=== PATIENT | female | born 1990 | race Caucasian/White ===

== ENCOUNTER 2016-09-10 11:19 | Outpatient (CLI) | payer OTHER | END 2016-09-10 11:20 | disposition home or self-care (01) | DX: Z36 Encounter for antenatal screening of mother (principal) ==

== ENCOUNTER 2016-11-16 08:00 | Outpatient (CLI) | payer OTHER | END 2016-11-16 08:01 | disposition home or self-care (01) | DX: Z34.83 Encounter for supervision of other normal pregnancy, third trimester (principal) ==

== ENCOUNTER 2016-12-02 08:37 | Outpatient (CLI) | payer OTHER | END 2016-12-02 09:28 | disposition home or self-care (01) | DX: O32.1XX0 Maternal care for breech presentation, not applicable or unspecified (principal); Z3A.38 38 weeks gestation of pregnancy ==

== ENCOUNTER 2016-12-21 16:44 | Outpatient (CLI) | payer OTHER | END 2016-12-21 18:10 | disposition home or self-care (01) | DX: O13.3 Gestational [pregnancy-induced] hypertension without significant proteinuria, third trimester (principal); Z3A.41 41 weeks gestation of pregnancy; O48.0 Post-term pregnancy ==

== ENCOUNTER 2016-12-23 01:15 | Inpatient (IN) | payer OTHER ==
[2016-12-22] MEDS: LACTATED RINGERS 1,000 ML IV SCH (19:08)
[~2016-12-23 01:15] MED LIST: DINOPROSTONE 10 MG SUPP VG ONE; SODIUM CHLORIDE FLUSH 0.9% 10 ML SYRINGE IVP PRN; SODIUM CHLORIDE FLUSH 0.9% 10 ML SYRINGE IVP SCH; ZOLPIDEM 5 MG TABLET PO PRN
[2016-12-23] MEDS: LACTATED RINGERS 1,000 ML IV SCH ×2 (02:01→04:09)
[2016-12-23] MEDS ORDERED: fent/BUPIV 2 MCG/0.125% 250 ML EP ONE (02:52)
[2016-12-23] MEDS ORDERED: NALBUPHINE 20 MG/ML AMP IVP PRN ×2 (03:08→04:25)
[2016-12-23] MEDS ORDERED: fent/BUPIV 2 MCG/0.125% 250 ML EP PRN ×2 (03:08→04:25)
[2016-12-23] MEDS ORDERED: diphenhydrAMINE INJ 50 MG/ML VIAL IVP PRN ×2 (03:08→04:25)
[2016-12-23] MEDS ORDERED: ONDANSETRON 4 MG/2 ML VIAL IVP PRN ×2 (03:08→04:25)
[2016-12-23] MEDS ORDERED: ROPIVACAINE 0.2% PF 20 ML AMPULE SUBQ ONE (03:12)
[2016-12-23] MEDS ORDERED: METOCLOPRAMIDE 10 MG/2 ML VIAL IVP PRN (04:25)
[2016-12-23] MEDS ORDERED: LACTATED RINGERS 500 ML IV SCH (04:25)
[2016-12-23] MEDS ORDERED: ePHEDrine 50 MG/ML AMP IVP PRN (04:25)
[2016-12-23] MEDS ORDERED: NALOXONE 0.4 MG/ML VIAL IVP PRN (04:25)
[2016-12-23] MEDS ORDERED: OXYTOCIN/LACTATED RINGERS 250 ML IV ONE ×2 (08:09→10:03)
[2016-12-23] MEDS ORDERED: LIDOCAINE 1% 50 ML MDV ONE (09:13)
[2016-12-23] MEDS: OXYTOCIN/LACTATED RINGERS 250 ML IV SCH ×2 (10:00→10:30)
[2016-12-23] MEDS ORDERED: MINERAL OIL LIGHT 10 ML MC ONE (12:48)
[2016-12-23] MEDS: OXYTOCIN/LACTATED RINGERS 250 ML IV ONE ×2 (13:05→18:27)
[2016-12-23] MEDS ORDERED: diphenhydrAMINE 25 MG CAPSULE PO PRN (13:16)
[2016-12-23] MEDS ORDERED: HYDROcod/ACETAM 5/325 MG TABLET PO PRN (13:16)
[2016-12-23] MEDS: ACETAMINOPHEN 325 MG TABLET PO PRN (13:54)
[2016-12-23] MEDS: IBUPROFEN 600 MG TABLET PO SCH ×2 (13:55→20:19)
[2016-12-23] MEDS ORDERED: LACTATED RINGERS 1,000 ML IV SCH (14:00)
[2016-12-23] MEDS: DOCUSATE SODIUM 100 MG CAPSULE PO SCH (21:02)
[2016-12-24] MEDS: IBUPROFEN 600 MG TABLET PO SCH ×3 (04:50→19:41)
[2016-12-24] MEDS: DOCUSATE SODIUM 100 MG CAPSULE PO SCH ×2 (09:13→19:40)
[2016-12-25] MEDS: IBUPROFEN 600 MG TABLET PO SCH ×2 (04:38→12:20)
[2016-12-25] MEDS ORDERED: MEASLES,MUMPS & RUBELLA VACC 0.5 ML VIAL SUBQ ONE (11:21)
[2016-12-25] MEDS: ACETAMINOPHEN 325 MG TABLET PO PRN (12:19)
[2016-12-25] MEDS: DOCUSATE SODIUM 100 MG CAPSULE PO SCH (12:20)
== END 2016-12-25 13:30 | disposition home or self-care (01) | DRG 775 ==
PROC: 10E0XZZ Delivery of Products of Conception, External Approach (ICD-10-PCS; principal; 2016-12-23)
DX: O13.4 Gestational [pregnancy-induced] hypertension without significant proteinuria, complicating childbirth (principal); O48.0 Post-term pregnancy; Z3A.41 41 weeks gestation of pregnancy; Z37.0 Single live birth

== ENCOUNTER 2017-01-09 19:20 | Emergency (ER) | payer OTHER ==
[2017-01-09] MEDS ORDERED: cefTRIAXone 1 GM VIAL IM STA (20:26)
[2017-01-09] MEDS ORDERED: LIDOCAINE 1% 2 ML VIAL ONE (20:51)
[2017-01-09] MEDS ORDERED: cefTRIAXone 1 GM VIAL ONE (20:51)
== END 2017-01-09 21:01 | disposition home or self-care (01) ==
DX: O86.21 Infection of kidney following delivery (principal); N12 Tubulo-interstitial nephritis, not specified as acute or chronic

== ENCOUNTER 2017-01-10 12:08 | Emergency (ER) | payer OTHER ==
[2017-01-10] MEDS ORDERED: ONDANSETRON 4 MG/2 ML VIAL IVP STA (12:52)
[2017-01-10] MEDS ORDERED: cefTRIAXone 1 GM in SODIUM CHLORIDE 0.9% MINIBAG 100 ML IV STA (12:52)
[2017-01-10] MEDS ORDERED: SODIUM CHLORIDE 0.9% 1,000 ML IV ONE (12:52)
--- NOTE | 2017-01-10 12:54 | ED Physician Documentation ---
PD HPI NVD - Stated complaint Stated Complaint: VOMITING - Chief complaint Chief Complaint: Abd Pain - History obtained from History obtained from: Patient - Additonal information Additional information: No 18 days post from . Seen here last night with L flank pain, dx pyelo. Now pain much better but vomited x2 after first dose of keflex this AM. No blood in vomit, no diarrhea, no fevers, but is feeling dizzy/lightheaded. Review of Systems Constitutional: denies: Fever, Chills Cardiac: denies: Chest pain / pressure, Palpitations Respiratory: denies: Dyspnea, Cough GI: denies: Abdominal Pain, Constipation, Diarrhea PD PAST MEDICAL HISTORY - Past Medical History Past Medical History: No - Past Surgical History Past Surgical History: No - Present Medications Home Medications: Ambulatory Orders Medication Instructions Recorded Confirmed Cephalexin [Keflex] 500 mg PO QID #40 capsule 01/09/17 01/10/17 Hydrocodone/Acetaminophen [Vicodin 1 tab PO Q6HR 01/09/17 01/10/17 5-300 mg Tablet] Pnv95/Ferrous Fumarate/FA 1 tab PO DAILY 01/09/17 01/10/17 [ Tablet] Ondansetron HCl [Zofran] 4 mg PO Q6H PRN #10 tablet 01/10/17 Sulfamethoxazole/Trimethoprim 1 each PO BID 7 Days 01/10/17 [Sulfamethoxazole-Tmp Ds Tablet] - Allergies Allergies/Adverse Reactions: Allergies Allergy/AdvReac Type Severity Reaction Status Date / Time No Known Drug Allergies Allergy Verified 01/10/17 12:15 - Social History Does the pt smoke?: No Smoking Status: Never smoker Does the pt drink ETOH?: No Does the pt have substance abuse?: No - Immunizations Immunizations are current?: Yes - POLST Patient has POLST: No PD ED PE NORMAL - Vitals Vital signs reviewed: Yes (normal) - General General: Alert and oriented X 3, No acute distress - Respiratory Respiratory: No respiratory distress - Abdomen Abdomen: Soft, Non tender - Back Back: No CVA TTP, No spinal TTP - Extremities Extremities: No edema, No calf tenderness / cord - Neuro Neuro: Alert and oriented X 3, Normal speech - Psych Psych: Normal mood, Normal affect Results - Vitals Vitals: Vital Signs - 24 hr 01/10/17 12:10 Temperature 36.4 C L Heart Rate 82 Respiratory 14 Rate Blood Pressure 119/79 O2 Saturation 98 Oxygen O2 Source Room air - Labs Labs: Laboratory Tests 01/10/17 01/10/17 13:10 13:10 Sodium 139 Potassium 4.1 Chloride 104 Carbon Dioxide 25 Anion Gap 10.0 BUN 20 Creatinine 1.3 H Estimated GFR (MDRD) 50 L Glucose 109 H Calcium 9.1 Total Bilirubin 0.3 AST 34 ALT 45 Alkaline Phosphatase 84 Total Protein 7.3 Albumin 3.8 Globulin 3.5 Albumin/Globulin Ratio 1.1 Lipase 16 L HCG, Quant 1.44 PD MEDICAL DECISION MAKING - ED course ED course: She presents with vomiting now, after diagnosis of pyelonephritis. I called over to microbiology, no results at this juncture on the culture. Her pain is much better and she is not running a fever and it started right after she took Keflex for the first time so I presume the vomiting is from the Keflex. Lab work shows negative serum hCG now and creatinine of 1.3 from dehydration is likely. She was administered IV fluids, a second dose of Rocephin and Zofran with resolution of her symptoms. Departure - Departure Disposition: 01 Home, Self Care Clinical Impression: Vomiting, Pyelonephritis Condition: Good Record reviewed to determine appropriate education?: Yes Instructions: ED Nausea Vomiting, Pyelonephritis Dc Prescriptions: Sulfamethoxazole/Trimethoprim [Sulfamethoxazole-Tmp Ds Tablet] 1 each PO BID 7 Days Ondansetron HCl [Zofran] 4 mg PO Q6H PRN #10 tablet PRN Reason: Nausea / Vomiting Comments: Your creatinine is mildly elevated in your blood work which is probably from dehydration, discuss this with your physician, he/she may want to repeat it in a few weeks.
[2017-01-10] MEDS ORDERED: ONDANSETRON 4 MG/2 ML VIAL ONE (13:06)
[2017-01-10] MEDS ORDERED: cefTRIAXone 1 GM VIAL ONE (13:06)
[2017-01-10 13:29] LABS: ALBUMIN/GLOBULIN RATIO 1.1 (1.0-2.2); BILIRUBIN,TOTAL 0.3 mg/dL (0.2-1.0); CALCIUM 9.1 mg/dL (8.5-10.3); CREATININE 1.3 mg/dL (0.4-1.0); POTASSIUM 4.1 mmol/L (3.5-5.0); TOTAL PROTEIN 7.3 g/dL (6.7-8.2)
[2017-01-10 13:56] VITALS: BP 120/67
== END 2017-01-10 13:55 | disposition home or self-care (01) ==
LOC: ED 12:08
DX: N12 Tubulo-interstitial nephritis, not specified as acute or chronic (principal); R11.2 Nausea with vomiting, unspecified
CPT/HCPCS: 36415; 80053; 83690; 84702; 96374; 96375; 99283

== ENCOUNTER 2017-11-29 10:55 | Emergency (ER) | payer OTHER ==
[2017-11-29] MEDS ORDERED: ONDANSETRON 4 MG/2 ML VIAL IVP STA (11:36)
[2017-11-29] MEDS ORDERED: SODIUM CHLORIDE 0.9% 1,000 ML IV ONE (11:36)
[2017-11-29 12:03] LABS: BASOPHILS % (AUTO) 0.3 %; EOSINOPHILS # (AUTO) 0.1 10^3/uL (0.0-0.7); LYMPHOCYTES % (AUTO) 14.7 %; MEAN CORPUSCULAR HEMOGLOBIN 28.5 pg (27.0-31.0); MEAN CORPUSCULAR HGB CONC 33.1 g/dL (32.0-36.0); MEAN CORPUSCULAR VOLUME 86.1 fL (81.0-99.0); MEAN PLATELET VOLUME 8.6 fL (7.9-10.8); MONOCYTES # (AUTO) 0.4 10^3/uL (0.0-1.0); NEUTROPHILS # (AUTO) 5.4 10^3/uL (1.5-6.6); PLT - PLATELET COUNT 267 10^3/uL (130-450); RED BLOOD COUNT 5.59 10^6/uL (4.20-5.40); RED CELL DISTRIBUTION WIDTH 14.3 % (12.0-15.0); WHITE BLOOD COUNT 6.9 x10^3/uL (4.8-10.8)
[2017-11-29 12:14] LABS: ALBUMIN 4.5 g/dL (3.2-5.5); ALBUMIN/GLOBULIN RATIO 1.1 (1.0-2.2); BILIRUBIN,TOTAL 0.8 mg/dL (0.2-1.0); CALCIUM 9.3 mg/dL (8.5-10.3); CREATININE 0.8 mg/dL (0.4-1.0); TOTAL PROTEIN 8.7 g/dL (6.7-8.2)
--- NOTE | 2017-11-29 12:45 | ED Physician Documentation ---
History of Present Illness - Stated complaint Stated Complaint: D/V/N - Chief complaint Chief Complaint: Abd Pain - Additonal information Additional information: hx from pt 27 y/o female might be pregnent to ER with one week of NVD no blood crampy abd pain before diarrhea no bad food no foreign travel no sick contacts no recent ab Review of Systems Constitutional: denies: Fever Throat: denies: Sore throat Cardiac: denies: Chest pain / pressure Respiratory: denies: Dyspnea, Cough GI: reports: Abdominal Pain, Nausea, Vomiting, Diarrhea. denies: Bloody / black stool : reports: Now EGA (maybe) Immunocompromised: denies: Immunocompromised PD PAST MEDICAL HISTORY - Past Medical History Past Medical History: Yes - Past Surgical History Past Surgical History: No - Present Medications Home Medications: Ambulatory Orders Medication Instructions Recorded Confirmed Cephalexin [Keflex] 500 mg PO QID #40 capsule 01/09/17 01/10/17 Hydrocodone/Acetaminophen [Vicodin 1 tab PO Q6HR 01/09/17 01/10/17 5-300 mg Tablet] Pnv95/Ferrous Fumarate/FA 1 tab PO DAILY 01/09/17 01/10/17 [ Tablet] Ondansetron HCl [Zofran] 4 mg PO Q6H PRN #10 tablet 01/10/17 Sulfamethoxazole/Trimethoprim 1 each PO BID 7 Days tablet 01/10/17 [Sulfamethoxazole-Tmp Ds Tablet] Pyridoxine HCl [Vitamin B-6] 25 mg PO Q8H PRN #10 tablet 11/29/17 - Allergies Allergies/Adverse Reactions: Allergies Allergy/AdvReac Type Severity Reaction Status Date / Time No Known Drug Allergies Allergy Verified 01/10/17 12:15 - Social History Does the pt smoke?: No Smoking Status: Never smoker Does the pt drink ETOH?: No Does the pt have substance abuse?: No - Immunizations Immunizations are current?: Yes - POLST Patient has POLST: No PD ED PE NORMAL - Vitals Vital signs reviewed: Yes - Neck Neck: Supple, no meningeal sign - Cardiac Cardiac: RRR - Respiratory Respiratory: No respiratory distress, Clear bilaterally - Abdomen Abdomen: Soft, Non tender - Derm Derm: Normal color - Neuro Neuro: Alert and oriented X 3 Results - Vitals Vitals: Vital Signs - 24 hr 11/29/17 11:08 Temperature 36.8 C Heart Rate 112 H Respiratory 18 Rate Blood Pressure 130/86 H O2 Saturation 95 Oxygen O2 Source Room air - Labs Labs: Laboratory Tests 11/29/17 11/29/17 11/29/17 11:50 11:50 11:50 WBC 6.9 RBC 5.59 H Hgb 16.0 Hct 48.1 H MCV 86.1 MCH 28.5 MCHC 33.1 RDW 14.3 Plt Count 267 MPV 8.6 Neut # 5.4 Lymph # 1.0 L [place] # 0.4 Eos # 0.1 Baso # 0.0 Absolute Nucleated RBC 0.01 Nucleated RBC % 0.1 Sodium 134 L Potassium 3.6 Chloride 102 Carbon Dioxide 23 Anion Gap 9.0 BUN 9 Creatinine 0.8 Estimated GFR (MDRD) 87 L Glucose 98 Calcium 9.3 Total Bilirubin 0.8 AST 27 ALT 29 Alkaline Phosphatase 71 Total Protein 8.7 H Albumin 4.5 Globulin 4.2 Albumin/Globulin Ratio 1.1 Lipase 13 L Serum HCG, Qual NEGATIVE PD MEDICAL DECISION MAKING - ED course ED course: feeling better after IVF held on meds pending HCG which came back neg - sx resolved with just IVF anyway no diarrhea in ED to send for culture will dc with PRN B6 Departure - Departure Disposition: 01 Home, Self Care Clinical Impression: Dehydration Diarrhea Qualifiers: Diarrhea type: unspecified type Qualified Code(s): R19.7 - Diarrhea, unspecified Vomiting Qualifiers: Vomiting type: unspecified Vomiting Intractability: unspecified Nausea presence : unspecified Qualified Code(s): R11.10 - Vomiting, unspecified Condition: Good Instructions: ED Dehydration, ED Food Poison Or Gastroenteritis Prescriptions: Pyridoxine HCl [Vitamin B-6] 25 mg PO Q8H PRN #10 tablet PRN Reason: vomiting in Comments: The labs are fine. The test is negative today - if you suspect you are consider a repeat test in 2 weeks We were not able to get a stool sample to send for testing - but from your history it sounds like this is a viral infection I have prescribed vitamin B6 which you can take if needed for vomiting since you might be Rest and drink plenty of fluids Return if worse Forms: Activity restrictions
[2017-11-29 13:17] LABS: HCG,QUALITATIVE BLOOD NEGATIVE
[2017-11-29 13:34] VITALS: BP 139/86
== END 2017-11-29 13:43 | disposition home or self-care (01) ==
LOC: ED 10:55
DX: E86.0 Dehydration (principal); R11.0 Nausea; R19.7 Diarrhea, unspecified
CPT/HCPCS: 36415; 80053; 83690; 84703; 85025; 96360; 99283; 99284

== ENCOUNTER 2018-02-21 07:44 | Outpatient (CLI) | payer OTHER ==
[2018-02-21 08:03] LABS: BILIRUBIN,URINE NEGATIVE (NEGATIVE); GLUCOSE, URINE (UA) NEGATIVE (NEGATIVE); KETONES,URINE (UA) NEGATIVE (NEGATIVE); LEUKOCYTE ESTERASE, URINE TRACE (NEGATIVE); NITRITE,URINE NEGATIVE (NEGATIVE); OCCULT BLOOD,URINE NEGATIVE (NEGATIVE); PROTEIN,URINE NEGATIVE (NEGATIVE); UROBILINOGEN,URINE 0.2 (NORMAL) E.U./dL (NORMAL)
[2018-02-21 08:09] LABS: BASOPHILS # (AUTO) 0.1 10^3/uL (0.0-0.1); BASOPHILS % (AUTO) 0.8 %; EOSINOPHILS # (AUTO) 0.2 10^3/uL (0.0-0.7); EOSINOPHILS % (AUTO) 1.8 %; HGB - HEMOGLOBIN 14.2 g/dL (12.0-16.0); LYMPHOCYTES # (AUTO) 2.4 10^3/uL (1.5-3.5); LYMPHOCYTES % (AUTO) 25.3 %; MEAN CORPUSCULAR HEMOGLOBIN 29.1 pg (27.0-31.0); MEAN CORPUSCULAR HGB CONC 32.8 g/dL (32.0-36.0); MEAN CORPUSCULAR VOLUME 88.8 fL (81.0-99.0); MONOCYTES # (AUTO) 0.6 10^3/uL (0.0-1.0); MONOCYTES % (AUTO) 6.3 %; NEUTROPHILS # (AUTO) 6.3 10^3/uL (1.5-6.6); NEUTROPHILS % (AUTO) 65.8 %; PLT - PLATELET COUNT 274 10^3/uL (130-450); RED BLOOD COUNT 4.86 10^6/uL (4.20-5.40); RED CELL DISTRIBUTION WIDTH 13.9 % (12.0-15.0); WHITE BLOOD COUNT 9.5 x10^3/uL (4.8-10.8)
[2018-02-21 08:15] LABS: CREATININE,URINE 226.9 mg/dL; PROTEIN/CREATININE RATIO,URINE 0.1 (<=0.2)
[2018-02-21 08:16] LABS: BACTERIA,URINE Moderate /HPF (None Seen); CLARITY,URINE SL. CLOUDY (CLEAR); RBC,URINE 0-5 /HPF (0-5); SQUAMOUS EPITHELIAL CELL,UR MANY Squamous (<= Few)
[2018-02-21 08:23] LABS: ALBUMIN 3.6 g/dL (3.2-5.5); ALBUMIN/GLOBULIN RATIO 0.9 (1.0-2.2); BILIRUBIN,TOTAL 0.5 mg/dL (0.2-1.0); CALCIUM 8.9 mg/dL (8.5-10.3); CREATININE 0.7 mg/dL (0.4-1.0); TOTAL PROTEIN 7.6 g/dL (6.7-8.2)
[2018-02-22 09:06] LABS: HEPATITIS B SURFACE ANTIGEN NON-REACTIVE (NON-REACTIVE); HEPATITIS C ANTIBODY NON-REACTIVE (NON-REACTIVE)
[2018-02-22 14:28] LABS: HIV AG/AB 4TH GEN NON-REACTIVE (NON-REACTIVE)
== END 2018-02-21 07:45 | disposition home or self-care (01) ==
LOC: LAB 07:44
PROVIDERS: ATTEND Obstetrics & Gynecology
DX: Z3A.08 8 weeks gestation of pregnancy (principal)
CPT/HCPCS: 36415; 80053; 80306; 81001; 81599; 82570; 83615; 84156; 85025; 86762; 86803; 86850; 86900; 86901; 87340; 87389; 87491; 87591

== ENCOUNTER 2018-02-21 08:00 | Outpatient (CLI) | payer OTHER ==
[2018-02-21 16:39] LABS: MUDS CUTOFF CONCENTRATIONS CUTOFF CONC BELOW:
[2018-02-21 16:57] LABS: AMPHETAMINE SCREEN,URINE NEGATIVE (NEGATIVE); BENZODIAZEPINES SCREEN, URINE NEGATIVE (NEGATIVE); COCAINE SCREEN URINE NEGATIVE (NEGATIVE); METHADONE SCREEN, URINE NEGATIVE (NEGATIVE); METHAMPHETAMINES SCREEN, URINE NEGATIVE (NEGATIVE); OPIATE SCREEN, URINE NEGATIVE (NEGATIVE); OXYCODONE SCREEN, URINE NEGATIVE (NEGATIVE); PROPOXYPHENE SCREEN, URINE NEGATIVE (NEGATIVE); TRICYCLIC ANTIDEPRESSANT,URINE NEGATIVE (NEGATIVE)
== END 2018-02-21 08:01 | disposition home or self-care (01) ==
LOC: LAB.R 08:00
PROVIDERS: ATTEND Obstetrics & Gynecology
DX: Z3A.08 8 weeks gestation of pregnancy (principal)
CPT/HCPCS: 80306; 87491; 87591

== ENCOUNTER 2018-03-23 15:19 | Outpatient (CLI) | payer OTHER | END 2018-03-23 15:20 | disposition home or self-care (01) | LOC: LAB 15:19 | PROVIDERS: ATTEND Obstetrics & Gynecology | DX: Z36.0 Encounter for antenatal screening for chromosomal anomalies (principal); Z3A.13 13 weeks gestation of pregnancy | CPT/HCPCS: 81599 ==

== ENCOUNTER 2018-04-20 10:47 | Outpatient (CLI) | payer OTHER ==
[2018-04-20 20:42] LABS: HB2 TOTAL 13.8 g/dL; HEMOGLOBIN A1C 0.44 g/dL; HEMOGLOBIN A1C % 5.1 % (4.6-6.2)
== END 2018-04-20 10:48 | disposition home or self-care (01) ==
LOC: LAB 10:47
PROVIDERS: ATTEND Registered Nurse
DX: Z36.9 Encounter for antenatal screening, unspecified (principal)
CPT/HCPCS: 36415; 81599; 82306; 82950; 83036; 84443

== ENCOUNTER 2018-05-09 07:14 | Outpatient (CLI) | payer OTHER ==
--- NOTE | 2018-05-09 15:32 | Ultrasound Report ---
Reason: ENCOUNTER FOR SCREEN FOR MALFORMATION Procedure Date: 05/09/2018 Accession Number: [id number] / [id number] Procedure: US - OB Detailed Eval CPT Code: FULL RESULT: EXAM: COMPLETE OBSTETRICAL ULTRASOUND EXAM DATE: 05/09/2018 09:54 AM. CLINICAL HISTORY: anatomic survey. COMPARISON: None. TECHNIQUE: Real-time sonographic evaluation of the fetus performed by the class c driver. Multiple freight representative static images were saved for review. DATING: Established EGA 20 weeks 1 day with JUNIOR 09/25/2018 based on LMP. EGA 19 weeks 1 day with JUNIOR 10/02/2018 based on the current ultrasound. GENERAL EVALUATION [place] . Cardiac activity: 146 bpm. movement: Visualized. Presentation: Transverse lie, head maternal right. Placenta: Anterior position. Complete previa present. Umbilical cord: 3 vessel cord. Central placental cord origin. Amniotic fluid: Subjectively normal. MVP 2.9 cm. BIOMETRY Bi-Parietal Diameter (BPD): 4.2 cm, 8 weeks 5 days Head Circumference (HC): 16.2 cm, 19 weeks 0 days Abdominal Circumference (AC): 13.8 cm, 19 weeks 1 day Femur Length (FL): 3.1 cm, 19 weeks 4 days Estimated Weight: 285 gm, 11 percentile for 20 week 1 day gestation. ANATOMY Evaluation of the anatomy was technically limited by positioning and patient body habitus. The intracranial structures, profile, face/nose/lips, spine, 4 chamber heart and outflow tracts, stomach, abdominal wall and cord insertion, diaphragm, kidneys, bladder, and extremities were visualized and demonstrate no abnormality. MATERNAL STRUCTURES Uterus: Unremarkable. Cervix: Long and closed. Transabdominal length 4.9 cm. Right ovary/adnexa: Unremarkable. Left ovary/adnexa: Unremarkable. Free fluid: None. IMPRESSION: 1. [place] live intrauterine with gestational age 20 weeks 1 day based on LMP. 2. Estimated weight is within expected limits for assigned dating. 3. Slightly suboptimal evaluation of the anatomy. No anatomic abnormalities are detected at this time. 4. Anterior placenta with complete previa. Recommend repeat ultrasound at 32 weeks to reassess placental positioning and risk for the vasa previa. RADIA
== END 2018-05-09 07:15 | disposition home or self-care (01) ==
LOC: DI 07:14
PROVIDERS: ATTEND Obstetrics & Gynecology
DX: Z36.3 Encounter for antenatal screening for malformations (principal)
CPT/HCPCS: 76811

== ENCOUNTER 2018-06-14 15:55 | Observation (INO) | payer OTHER ==
[2018-06-14 17:17] LABS: RUPTURE OF MEMBRANES PLUS NEGATIVE (NEGATIVE)
[2018-06-14] MEDS ORDERED: ONDANSETRON ODT 4 MG TABLET TL PRN (17:43)
[2018-06-14] MEDS ORDERED: HYDROcod/ACETAM 10 MG/325 MG TABLET PO PRN (17:45)
[2018-06-14] MEDS ORDERED: BETAMETHASONE 30 MG/5 ML VIAL IM ONE (18:00)
[2018-06-14] MEDS ORDERED: ACETAMINOPHEN 500 MG TABLET PO SCH (18:00)
[2018-06-14 18:18] LABS: BASOPHILS % (AUTO) 0.4 %; EOSINOPHILS # (AUTO) 0.1 10^3/uL (0.0-0.7); HGB - HEMOGLOBIN 12.7 g/dL (12.0-16.0); LYMPHOCYTES % (AUTO) 18.8 %; MEAN CORPUSCULAR HEMOGLOBIN 29.2 pg (27.0-31.0); MEAN CORPUSCULAR HGB CONC 33.2 g/dL (32.0-36.0); MEAN CORPUSCULAR VOLUME 87.8 fL (81.0-99.0); MEAN PLATELET VOLUME 9.2 fL (7.9-10.8); MONOCYTES # (AUTO) 0.6 10^3/uL (0.0-1.0); MONOCYTES % (AUTO) 5.3 %; NEUTROPHILS # (AUTO) 7.9 10^3/uL (1.5-6.6); NEUTROPHILS % (AUTO) 74.5 %; PLT - PLATELET COUNT 268 10^3/uL (130-450); RED BLOOD COUNT 4.35 10^6/uL (4.20-5.40); RED CELL DISTRIBUTION WIDTH 14.1 % (12.0-15.0); WHITE BLOOD COUNT 10.6 x10^3/uL (4.8-10.8)
[2018-06-14] MEDS ORDERED: SODIUM CHLORIDE FLUSH 0.9% 10 ML SYRINGE ONE (18:21)
[2018-06-14] MEDS: CYCLOBENZAPRINE 10 MG TABLET PO PRN (18:28)
[2018-06-14] MEDS: ACETAMINOPHEN 500 MG TABLET PO SCH (18:29)
--- NOTE | 2018-06-14 19:24 | Ultrasound Report ---
Reason: abd. trauma from fall, hx placenta previa Procedure Date: 06/14/2018 Accession Number: [id number] / [id number] Procedure: US - OB F/U or Repeat CPT Code: FULL RESULT: EXAM: FOLLOW-UP OBSTETRICAL ULTRASOUND EXAM DATE: 06/14/2018 05:40 PM. CLINICAL HISTORY: Abdominal trauma from a fall, history of placenta previa. COMPARISON: Follow-up or repeat 09/10/2016 11:56 AM. OB detailed evaluation 05/09/2018 7:40 AM. TECHNIQUE: Real-time sonographic evaluation of the fetus performed by the automatic engraver. Additional transvaginal imaging to more accurately evaluate cervical length/placental position/etc. Multiple independent sales representative static images were saved for review. DATING: Established EGA 25 weeks 1 day with JUNIOR 09/26/2018 based on established dates. GENERAL EVALUATION [place] . Cardiac activity: 146 bpm. movement: Visualized. Presentation: Transverse with the head to maternal left. Placenta: Low anterior position. Inferior margin of the placenta covers the cervical os. Amniotic fluid: Normal. JOON 10 cm. MVP 3.2 cm. BIOMETRY Bi-Parietal Diameter (BPD): 5.5 cm, 22 weeks 6 days. Head Circumference (HC): 21.7 cm, 23 weeks 5 days. Abdominal Circumference (AC): 19.7 cm, 24 weeks 3 days. Femur Length (FL): 4.4 cm, 24 weeks 3 days. Estimated Weight: 677 gm, 12th percentile. ANATOMY No new gross abnormality on this limited survey. MATERNAL STRUCTURES Maternal cervix is closed measuring 4.7 cm. IMPRESSION: 1. [place] live intrauterine with gestational age 25 weeks 1 day based on established dates. 2.Estimated weight of 12%. 3. Complete placenta previa. Recommend close attention on subsequent imaging. No abruption is noted. 4. Closed cervix measuring 4.7 cm. 5.Normal interval growth compared to 05/09/2018. RADIA
--- NOTE | 2018-06-14 20:14 | HISTORY & PHYSICAL EXAMINATION ---
DATE OF ADMISSION: 06/14/2018 Physician: Evita Mckinney DO FACOG IDENTIFICATION: A 27-year-old G3, P1-0-1-1, with a 25-week, 1-day intrauterine . EDC is 09/26/2018 that was consistent with an 8-week ultrasound. HISTORY OF PRESENT ILLNESS: Sarah is a patient of [facility]. Unfortunately, she had a ground level fall today. She was walking down the stairs and went down 3 stairs. Her toddler son jumped on her abdomen afterwards. Sarah states that the baby is moving well. Denies any vaginal bleeding or contractions. She is feeling sore and noticed warmth in her underwear. Sarah thinks that this is probably loss of urine. Otherwise, Sarah denies any nausea, vomiting, fevers, or chills. Sarah's has been unremarkable. Placenta previa was noted on her 05/09/2018 anatomical survey with an anterior placenta with complete previa. Transabdominal cervical length at that time was 4.9 cm. Sarah was then referred to the maternal medicine specialist at [facility]. They confirmed an anterior low lying placenta that was 2-3 mm from the internal os in essence of functional placenta previa. Recommended repeat ultrasound in 5 weeks for a growth as well as placenta edge was recommended. PAST MEDICAL HISTORY: Morbid obesity. PAST SURGICAL HISTORY: Diagnostic laparoscopy in which a right fallopian tube was found to be blocked. ALLERGIES: NO KNOWN DRUG ALLERGIES, BUT SHE HAS VOMITED WITH ANCEF. MEDICATIONS 1. vitamins. 2. Tylenol as needed. SOCIAL HISTORY: She denies any tobacco, alcohol or illicit drug use. Sarah is to Lawrence and they have a toddler baby boy, Jmain Cameron. Lawrence is in the [place]. [id number] in [place], [place] is her pharmacy of choice. PAST OBSTETRICAL HISTORY 1. One spontaneous . 2. One term spontaneous vaginal delivery of baby boy Jamin, weight 8 pounds 8.8 ounces. It was noted that Sarah, for her son Jamin, delivered at 41 weeks 1 day for gestational hypertension. She was given Cervidil and then Pitocin after her epidural. Baseline preeclampsia for this were within normal limits. PAST GYNECOLOGICAL HISTORY: She denies any sexually transmitted diseases and all Pap smears have been described as normal limits. FAMILY HISTORY: Paternal grandmother had breast cancer. REVIEW OF SYSTEMS: Negative unless otherwise stated. PHYSICAL EXAMINATION VITAL SIGNS: Temperature is 98.6, heart rate 94, blood pressure 125/69, respiratory rate 18, O2 saturation 100% on room air. GENERAL: Sarah is an obese Fijian female in no apparent distress. She is alert and oriented x3, appeared managed very pleasant and ease to speak to. HEENT: Within normal limits. Sarah does wear glasses. CARDIOVASCULAR: Heart rate is regular. No murmurs or rubs. LUNGS: Lungs are clear to auscultation bilaterally. ABDOMEN: Gravid, nontender. BACK: Generally tender mainly on the left hip area. There are no signs of ecchymosis on her back, nor on her abdomen. LABORATORY DATA: On 02/21/2018 show that her U-tox is negative. Gonorrhea and chlamydia both negative. HIV nonreactive, RPR nonreactive, hepatitis B surface antigen nonreactive. Hepatitis C nonreactive. White count 9.5, H and H 14.2 and 43.2, platelets 274. Rubella is equivocal. Blood type is O positive. Antibody screen is negative. On 04/20/2018, 1-hour GTT is 117 and TSH is 2.24. Hemoglobin A1c is 5.0. Her most recent Pap smear on 02/03/2017 was negative. IMAGING AND DIAGNOSTIC DATA: A 05/09/2018 anatomical survey is consistent with dates and within normal limits. Placenta is anterior, but also complete previa, 3-vessel umbilical cord. Amniotic fluid with a MVP of 2.9 cm at that time. Cervix via transabdominal length was 4.9 cm. Ultrasound again at [facility] showed an anterior low lying placenta 2-3 mm from the internal os. ASSESSMENT 1. A 27-year-old G3, P1-0-1-1 with a 25 and 1/7 week intrauterine . 2. Status post ground level fall. 3. Known functional anterior placenta previa. 4. Rubella nonimmune. PLAN 1. We will admit to observation. We will do a prolonged observation on Sarah given that she has known placenta previa. 2. ROM plus and FFN has been performed. We will also order a CBC type and screen, and FMB flow cystometry. 3. Limited OB ultrasound for estimated weight, amniotic fluid index, cervical length and evaluation for placental abruption. 4. We will start betamethasone series today and complete the second injection tomorrow for lung maturity in the event that Sarah does have a placenta abruption or goes into labor. 5. We will collect a GBS. TD: 06/14/2018 18:12 MTDSarah
--- NOTE | 2018-06-14 21:33 | PROVIDER PROGRESS NOTE ---
Subjective - Prog Note Date Prog Note Date: 06/14/18 Prog Note Time: 21:29 Objective - Vital Signs/Intake & Output Reviewed Vital Signs: Yes Vital Signs: Vital Signs x48h Temp Pulse Resp BP BP Pulse Ox 06/14/18 19:33 97.9 F 101 H 16 129/57 L 98 06/14/18 16:11 98.6 F 94 18 125/69 100 - Lab Results Fish Bones: 06/14/18 18:04 Other Labs: Lab Results x24hrs 06/14/18 06/14/18 06/14/18 Range/Units 18:04 18:04 16:44 WBC 10.6 (4.8-10.8) x10^3/uL RBC 4.35 (4.20-5.40) 10^6/uL Hgb 12.7 (12.0-16.0) g/dL Hct 38.2 (37.0-47.0) % MCV 87.8 (81.0-99.0) fL MCH 29.2 (27.0-31.0) pg MCHC 33.2 (32.0-36.0) g/dL RDW 14.1 (12.0-15.0) % Plt Count 268 (130-450) 10^3/uL MPV 9.2 (7.9-10.8) fL Neut # (Auto) 7.9 H (1.5-6.6) 10^3/uL Lymph # (Auto) 2.0 (1.5-3.5) 10^3/uL [place] # (Auto) 0.6 (0.0-1.0) 10^3/uL Eos # (Auto) 0.1 (0.0-0.7) 10^3/uL Baso # (Auto) 0.0 (0.0-0.1) 10^3/uL Absolute Nucleated RBC 0.01 x10^3/uL Nucleated RBC % 0.1 /100WBC Membranes Rupture NEGATIVE (NEGATIVE) Fibronectin (NEGATIVE) Blood Type O POSITIVE Antibody Screen NEGATIVE 06/14/18 Range/Units 16:44 WBC (4.8-10.8) x10^3/uL RBC (4.20-5.40) 10^6/uL Hgb (12.0-16.0) g/dL Hct (37.0-47.0) % MCV (81.0-99.0) fL MCH (27.0-31.0) pg MCHC (32.0-36.0) g/dL RDW (12.0-15.0) % Plt Count (130-450) 10^3/uL MPV (7.9-10.8) fL Neut # (Auto) (1.5-6.6) 10^3/uL Lymph # (Auto) (1.5-3.5) 10^3/uL [place] # (Auto) (0.0-1.0) 10^3/uL Eos # (Auto) (0.0-0.7) 10^3/uL Baso # (Auto) (0.0-0.1) 10^3/uL Absolute Nucleated RBC x10^3/uL Nucleated RBC % /100WBC Membranes Rupture (NEGATIVE) Fibronectin NEGATIVE (NEGATIVE) Blood Type Antibody Screen Assessment/Plan - Problem List (1) Placenta previa antepartum in second trimester Impression: 27 yo with a 25w1d IUP. Anterior placenta previa. No signs of abruption or labor. Stable H/H 12.7/38.2. ROM Plus negative as well as FFN. O positive and antibody negative. OB U/S: Transverse with head to maternal left. JOON 10 cm with MVP 3.2 cm. EFW 677 gm, 12%centile. Cervix 4.7 cm. No abruption noted. Will continue monitoring for S/s placenta abruption with a known placenta previa. Betamethasone 12 mg IM x 1 today and repeat in 24 hours in the event of PTD. (2) Fall down stairs Impression: S/p fall of 3 steps. Routine tylenol with PRN vicodin. Comfort measures.
[2018-06-15] MEDS: ACETAMINOPHEN 500 MG TABLET PO SCH ×2 (04:11→06:47)
[2018-06-15] MEDS: CYCLOBENZAPRINE 10 MG TABLET PO PRN ×2 (06:47→14:24)
[2018-06-15] MEDS ORDERED: ACETAMINOPHEN 160 MG/5 ML SUSP UDC PO ONE (07:00)
[2018-06-15] MEDS ORDERED: PRENATAL VITAMIN TABLET PO SCH (08:00)
--- NOTE | 2018-06-15 08:51 | PROVIDER PROGRESS NOTE ---
Subjective - Prog Note Date Prog Note Date: 06/15/18 Prog Note Time: 08:49 - Subjective Pt reports feeling: Improved Subjective: Sarah sitting in bed watching TV. Was just speaking to Lawrence, her . Sarah said she had spotting last night but none today. Normal cramping a little worse but no esther contractions. Baby moving well. Muscle relaxant helping. Did take 1 vicodin last night to help her sleep. Would like to do 1 hr GTT since she's here. Understands that she will need a CD at [facility] if placenta previa does not resolve. If however, placenta >/=2 cm from the os, she may deliver here. Objective - Vital Signs/Intake & Output Vital Signs: Vital Signs x48h Temp Pulse Resp BP Pulse Ox 06/15/18 04:04 98.1 F 93 16 114/62 99 - Objective General Appearance: positive: No acute distress Abdomen: positive: Non-tender (Gravid) Back: positive: Nml inspection (No ecchymosis) Skin: positive: Color nml Neurologic/Psychiatric: positive: Oriented x3, Mood/affect nml - Lab Results Fish Bones: 06/14/18 18:04 Other Labs: Lab Results x24hrs 06/14/18 06/14/18 06/14/18 Range/Units 18:04 18:04 16:44 WBC 10.6 (4.8-10.8) x10^3/uL RBC 4.35 (4.20-5.40) 10^6/uL Hgb 12.7 (12.0-16.0) g/dL Hct 38.2 (37.0-47.0) % MCV 87.8 (81.0-99.0) fL MCH 29.2 (27.0-31.0) pg MCHC 33.2 (32.0-36.0) g/dL RDW 14.1 (12.0-15.0) % Plt Count 268 (130-450) 10^3/uL MPV 9.2 (7.9-10.8) fL Neut # (Auto) 7.9 H (1.5-6.6) 10^3/uL Lymph # (Auto) 2.0 (1.5-3.5) 10^3/uL [place] # (Auto) 0.6 (0.0-1.0) 10^3/uL Eos # (Auto) 0.1 (0.0-0.7) 10^3/uL Baso # (Auto) 0.0 (0.0-0.1) 10^3/uL Absolute Nucleated RBC 0.01 x10^3/uL Nucleated RBC % 0.1 /100WBC Membranes Rupture NEGATIVE (NEGATIVE) Fibronectin (NEGATIVE) Blood Type O POSITIVE Antibody Screen NEGATIVE 06/14/18 Range/Units 16:44 WBC (4.8-10.8) x10^3/uL RBC (4.20-5.40) 10^6/uL Hgb (12.0-16.0) g/dL Hct (37.0-47.0) % MCV (81.0-99.0) fL MCH (27.0-31.0) pg MCHC (32.0-36.0) g/dL RDW (12.0-15.0) % Plt Count (130-450) 10^3/uL MPV (7.9-10.8) fL Neut # (Auto) (1.5-6.6) 10^3/uL Lymph # (Auto) (1.5-3.5) 10^3/uL [place] # (Auto) (0.0-1.0) 10^3/uL Eos # (Auto) (0.0-0.7) 10^3/uL Baso # (Auto) (0.0-0.1) 10^3/uL Absolute Nucleated RBC x10^3/uL Nucleated RBC % /100WBC Membranes Rupture (NEGATIVE) Fibronectin NEGATIVE (NEGATIVE) Blood Type Antibody Screen Assessment/Plan - Problem List (1) Placenta previa antepartum in second trimester Impression: 27 yo with a 25w2d IUP Stable placenta previa without S/s abruption S/p first dose of betamethasone Repeat 2nd dose today 24 hours after first injection and then plan to discharge to home Await results of FMB Flow cystometry (2) Fall down stairs Impression: Improving from yesterday Plan to continue routine tylenol and PRN vicodin and cyclobenzaprine Will write for vicodin and cyclobenzaprine for home
[2018-06-15 09:48] VITALS: BP 114/56
--- NOTE | 2018-06-15 12:18 | PROVIDER PROGRESS NOTE ---
Subjective - Prog Note Date Prog Note Date: 06/15/18 Prog Note Time: 12:16 - Subjective Pt reports feeling: No change Subjective: Sarah doing well. No complaints. Baby moving well and no vaginal bleeding. Objective - Vital Signs/Intake & Output Vital Signs: Vital Signs x48h Temp Pulse Resp BP Pulse Ox 06/15/18 09:47 97.3 F L 97 18 114/56 L 100 - Lab Results Fish Bones: 06/14/18 18:04 Other Labs: Lab Results x24hrs 06/15/18 06/14/18 06/14/18 Range/Units 10:30 18:04 18:04 WBC 10.6 (4.8-10.8) x10^3/uL RBC 4.35 (4.20-5.40) 10^6/uL Hgb 12.7 (12.0-16.0) g/dL Hct 38.2 (37.0-47.0) % MCV 87.8 (81.0-99.0) fL MCH 29.2 (27.0-31.0) pg MCHC 33.2 (32.0-36.0) g/dL RDW 14.1 (12.0-15.0) % Plt Count 268 (130-450) 10^3/uL MPV 9.2 (7.9-10.8) fL Neut # (Auto) 7.9 H (1.5-6.6) 10^3/uL Lymph # (Auto) 2.0 (1.5-3.5) 10^3/uL [place] # (Auto) 0.6 (0.0-1.0) 10^3/uL Eos # (Auto) 0.1 (0.0-0.7) 10^3/uL Baso # (Auto) 0.0 (0.0-0.1) 10^3/uL Absolute Nucleated RBC 0.01 x10^3/uL Nucleated RBC % 0.1 /100WBC Glucose 1 Hr 50 gm 168 Membranes Rupture (NEGATIVE) Fibronectin (NEGATIVE) Blood Type O POSITIVE Antibody Screen NEGATIVE 06/14/18 06/14/18 Range/Units 16:44 16:44 WBC (4.8-10.8) x10^3/uL RBC (4.20-5.40) 10^6/uL Hgb (12.0-16.0) g/dL Hct (37.0-47.0) % MCV (81.0-99.0) fL MCH (27.0-31.0) pg MCHC (32.0-36.0) g/dL RDW (12.0-15.0) % Plt Count (130-450) 10^3/uL MPV (7.9-10.8) fL Neut # (Auto) (1.5-6.6) 10^3/uL Lymph # (Auto) (1.5-3.5) 10^3/uL [place] # (Auto) (0.0-1.0) 10^3/uL Eos # (Auto) (0.0-0.7) 10^3/uL Baso # (Auto) (0.0-0.1) 10^3/uL Absolute Nucleated RBC x10^3/uL Nucleated RBC % /100WBC Glucose 1 Hr 50 gm Membranes Rupture NEGATIVE (NEGATIVE) Fibronectin NEGATIVE (NEGATIVE) Blood Type Antibody Screen Assessment/Plan - Problem List (1) Placenta previa antepartum in second trimester Impression: 27 yo with a 25w2d IUP Stable placenta previa S/p 1st dose of Beta-methasone yesterday, 2nd dose due today at 18:00 Plan to discharge to home after 2nd dose given Follow up with me next week. (2) Fall down stairs Impression: S/p fall
--- NOTE | 2018-06-15 12:21 | Discharge Plan ---
Discharge Plan Disposition: 01 Home, Self Care Condition: Good Diet: Regular Activity Restrictions: Pelvic rest, no lifting >10 lbs Shower Restrictions: No Driving Restrictions: Yes (No driving) Weight Bearing: Full Weight Additional Instructions or Follow Up instructions: Rx for vicodin and cyclobenzaprine for home No Smoking: If you smoke, Please STOP! Call for help.
[2018-06-15] MEDS ORDERED: ACETAMINOPHEN 325 MG TABLET PO SCH (14:00)
[2018-06-15] MEDS ORDERED: BETAMETHASONE 30 MG/5 ML VIAL IM ONE (18:00)
== END 2018-06-15 17:51 | disposition home or self-care (01) ==
LOC: WFO 15:55 → FBP 15:56 → WFO 17:22 → FBP 17:23
PROVIDERS: ADMIT Obstetrics & Gynecology; ATTEND Obstetrics & Gynecology
DX: O99.89 Other specified diseases and conditions complicating pregnancy, childbirth and the puerperium (principal); M25.552 Pain in left hip; O44.02 Complete placenta previa NOS or without hemorrhage, second trimester; O99.212 Obesity complicating pregnancy, second trimester; E66.01 Morbid (severe) obesity due to excess calories; W10.8XXA Fall (on) (from) other stairs and steps, initial encounter; Y92.008 Other place in unspecified non-institutional (private) residence as the place of occurrence of the external cause; Z3A.25 25 weeks gestation of pregnancy
CPT/HCPCS: 76816; 81599; 82731; 82950; 84112; 85025; 86850; 86900; 86901; 96372; 99212; A9270; G0378

== ENCOUNTER 2018-06-23 12:08 | Outpatient (CLI) | payer OTHER ==
[2018-06-23 12:47] LABS: HB2 TOTAL 13.2 g/dL; HEMOGLOBIN A1C 0.41 g/dL
== END 2018-06-23 12:09 | disposition home or self-care (01) ==
LOC: LAB 12:08
PROVIDERS: ATTEND Obstetrics & Gynecology
DX: O99.810 Abnormal glucose complicating pregnancy (principal)
CPT/HCPCS: 36415; 82951; 82952; 83036

== ENCOUNTER 2018-08-28 16:08 | Outpatient (CLI) | payer OTHER | END 2018-08-28 16:09 | disposition home or self-care (01) | LOC: LAB.R 16:08 | PROVIDERS: ATTEND Obstetrics & Gynecology | DX: Z33.1 Pregnant state, incidental (principal) | CPT/HCPCS: 87081 ==

== ENCOUNTER 2018-09-18 15:05 | Outpatient (CLI) | payer OTHER ==
[2018-09-18 16:48] VITALS: BP 137/64
[2018-09-18 17:27] LABS: BASOPHILS % (AUTO) 0.3 %; EOSINOPHILS # (AUTO) 0.1 10^3/uL (0.0-0.7); EOSINOPHILS % (AUTO) 0.9 %; HGB - HEMOGLOBIN 12.3 g/dL (12.0-16.0); LYMPHOCYTES # (AUTO) 2.3 10^3/uL (1.5-3.5); LYMPHOCYTES % (AUTO) 24.2 %; MEAN CORPUSCULAR HEMOGLOBIN 28.1 pg (27.0-31.0); MEAN CORPUSCULAR HGB CONC 32.4 g/dL (32.0-36.0); MEAN CORPUSCULAR VOLUME 86.9 fL (81.0-99.0); MEAN PLATELET VOLUME 9.6 fL (7.9-10.8); MONOCYTES # (AUTO) 0.7 10^3/uL (0.0-1.0); MONOCYTES % (AUTO) 7.3 %; NEUTROPHILS # (AUTO) 6.5 10^3/uL (1.5-6.6); NEUTROPHILS % (AUTO) 67.3 %; PLT - PLATELET COUNT 249 10^3/uL (130-450); RED BLOOD COUNT 4.38 10^6/uL (4.20-5.40); RED CELL DISTRIBUTION WIDTH 14.7 % (12.0-15.0); WHITE BLOOD COUNT 9.6 x10^3/uL (4.8-10.8)
[2018-09-18] MEDS ORDERED: ZOLPIDEM 5 MG TABLET PO PRN (18:24)
--- NOTE | 2018-09-18 18:27 | Discharge Plan ---
Discharge Plan Disposition: 01 Home, Self Care Condition: Good Diet: Regular Activity Restrictions: Wt Bearing as Tolerated Shower Restrictions: No Driving Restrictions: No Weight Bearing: Full Weight No Smoking: If you smoke, Please STOP! Call for help.
--- NOTE | 2018-09-18 18:29 | PROVIDER PROGRESS NOTE ---
Labor Progress Note - Uterine Monitoring Uterine Monitoring Mode: positive: External toco Contraction Frequency (min/apart): Q 3-5 Contraction Intensity: positive: Mild (to Min) Uterine Resting Tone: positive: Soft - Monitoring Monitor Mode: positive: External ultrasound Heart Rate Baseline: 140 Heart Rate Variability: positive: Moderate (6-25 bmp) Accelerations: positive: Present, 15x15 Decelerations: positive: None Strip Review: positive: Category I - Vaginal Exam Dilation (in cm): 2 no change Effacement (%): 50% Station: -1 Cervical Position: Midposition - Labor Progress Note Labor Progress Note/Additional Text: Not in labor. C/S set for Tuesday unless labor starts. Instructions given.
[2018-09-19] MEDS ORDERED: CLINDAMYCIN 600 MG/50 ML 50 ML IV ONE (17:26)
== END 2018-09-18 18:45 | disposition home or self-care (01) ==
LOC: LAB 15:05 → FBP 15:25 → LAB 18:45
PROVIDERS: ATTEND Obstetrics & Gynecology
DX: Z34.83 Encounter for supervision of other normal pregnancy, third trimester (principal)
CPT/HCPCS: 36415; 85025; 86850; 86900; 86901; 99213; A9270

== ENCOUNTER 2018-09-19 10:05 | Inpatient (IN) | payer OTHER ==
--- NOTE | 2018-09-18 21:56 | PREOP HISTORY & PHYSICAL ---
DATE OF SERVICE: 09/18/2018 Physician: Rakesh Parker MD DIAGNOSES 1. Labor. 2. Elective section due to LGA fetus. 3. Elective sterilization. 4. Maternal obesity. HISTORY OF PRESENT ILLNESS: Patient is a 28-year-old , 3, para 1-0-1-1 woman at 38 weeks' 6 days' gestation and reports regular uterine contractions and pelvic pressure beginning on the afternoon of the 09/18/2018. She is currently being triaged for possible labor. Patient has been seen for similar complaints by Dr. Doe on 09/12/2018. CARE: Pending report. Patient had placenta previa reported earlier in the , has had serial following by [facility]. This confirms that placenta previa has resolved. She did experience a fall at 25 weeks, which has not have sequela and a course of betamethasone at that time. One-hour glucose challenge test was 198, and 3-hour testing reported normal. In , patient had severe fatigue, which was worked up without detection of thyroid disease, anemia, etc. PAST MEDICAL HISTORY: Patient denies cardiovascular disease. ALLERGIES: KEFLEX. MEDICATIONS: vitamins and iron. FAMILY HISTORY: Denies inheritable disease history or congenital anomalies. + HTN & DM SOCIAL HISTORY: Denies drug, tobacco, or alcohol use. U-tox taken and negative. REVIEW OF SYSTEMS CONSTITUTIONAL: Negative. HEENT: Negative. CARDIAC: Negative. PULMONARY: Negative. GASTROINTESTINAL: Negative. GENITOURINARY: Negative. SKIN: Negative. NEUROLOGIC: Negative. HEMATOLOGIC: No easy bleeding tendencies. PHYSICAL EXAMINATION GENERAL: Alert, oriented, cooperative, obese. HEENT: Glasses, EOMI. Nonicteric sclerae. Supple neck. No thyromegaly. LUNGS: Clear to auscultation. CARDIAC: Regular. No murmur. No gallop. ABDOMEN: Slightly large liver. No tenderness. No focal tenderness. UTERUS: Reilly's suspect an 8 pound fetus in a vertex presentation. Contractions every about 3-5 minutes palpable. Heart tones office 135-140. EXTERNAL GENITALIA: No lesions. Vagina: No blood or discharge. CERVIX: 1-2 cm, 20/30 percent effaced, -1 station. MUSCULOSKELETAL: Nonedematous. Normal ROM. NEUROLOGIC: Grossly intact. Patellar reflexes 2+ and equal. ADMISSION LABORATORY DATA: Pending. ASSESSMENT: This is a term in a patient who elects to have a primary motivated by possible macrosomia. Additionally, she desires bilateral tubal ligation using salpingectomy. She understands this will yield her sterile, which is her desire. She is aware of the dangers of section and salpingectomy inclusive of bleeding, transfusion, infection, postoperative pain, damage to GI tract, damage to bladder, urinary tract. This was explained to her in detail, and she accepts these risks. PLAN: Patient sent to Labor and Delivery for observation to determine if she is in labor. If she is in labor, section will be done on the 09/19/2018. Otherwise, planning for the 09/20/2018. We will use clindamycin for prophylactic antibiotic. TD: 09/18/2018 17:37 Revised 09/25/2018 anabella Acct correction Orig. signed 09/19/2018@0929 MTDD
[2018-09-19 11:05] LABS: RUPTURE OF MEMBRANES PLUS NEGATIVE (NEGATIVE)
[2018-09-19] MEDS ORDERED: fentaNYL 100 MCG/2 ML VIAL IVP PRN (12:56)
[2018-09-19] MEDS ORDERED: ONDANSETRON 4 MG/2 ML VIAL IVP PRN (12:56)
[2018-09-19] MEDS ORDERED: SODIUM CHLORIDE FLUSH 0.9% 10 ML SYRINGE IVP PRN ×2 (12:56→16:55)
[2018-09-19] MEDS ORDERED: ACETAMINOPHEN 325 MG TABLET PO SCH (13:00)
[2018-09-19] MEDS ORDERED: LACTATED RINGERS 1,000 ML IV SCH (13:00)
[2018-09-19] MEDS ORDERED: diphenhydrAMINE INJ 50 MG/ML VIAL IVP ONE (14:46)
[2018-09-19] MEDS ORDERED: CLINDAMYCIN 900 MG/50 ML 50 ML IV SCH (16:00)
[2018-09-19] MEDS ORDERED: diphenhydrAMINE 25 MG CAPSULE PO PRN (16:55)
[2018-09-19] MEDS ORDERED: oxyCODONE 5 MG TABLET PO PRN (16:55)
[2018-09-19] MEDS ORDERED: MAGNESIUM HYDROXIDE 2,400 MG/30 ML UDC PO PRN (16:55)
[2018-09-19] MEDS ORDERED: ZOLPIDEM 5 MG TABLET PO PRN (16:55)
[2018-09-19] MEDS ORDERED: SODIUM CHLORIDE FLUSH 0.9% 10 ML SYRINGE IVP SCH ×2 (17:00)
--- NOTE | 2018-09-19 17:02 | OPERATIVE REPORT ---
Operative Report - General Admit Date: 09/19/18 Planned Procedure: Primary section; sterilization Pre-Op Diagnosis: Elective (maternal desire) section; sterilization via bilateral sa Procedure Performed: Primary lower segment transverse section; bilateral salpingectomy Post Op Diagnosis: Same as above - Procedure Note Primary Surgeon: Arias MD, FACOG, FICS Secondary Surgeon: Raji Vázquez, DHRUV, AFNP Anesthesia Provider: Daja Simon, certified nurse plate glass grinder Anesthesia Technique: Spinal Pathology: Tubal segments, right marked with suture Drain/Tube Type: Other (Rosado catheter) Complications: NONE - Other Other Information/Narrative: TECHNIQUE I met the patient and her earlier in the day to discuss the mechanics risks and benefits of primary section. She was certain of her decision because of possible LGA fetus and desire for bilateral tubal ligation/salpingectomy. She will accept transfusion if required. Informed consent paperwork was signed. Just prior to surgery should confirmed her desire for sterilization. Patient was placed on the OR table in the sitting position for administration of spinal anesthesia. Spinal was uneventfully placed. Patient was then moved to the supine. Rosado catheter was uneventfully placed with clear urine return. heart tones were confirmed. Patient was prepped and draped in the customary sterile fashion. Timeout briefing was done per protocol. We confirmed good anesthesia coverage through the level T10. Pfannenstiel incision was used to uneventfully open the abdomen. Upon abdominal cavity entry there was no significant adhesive disease. Representative Phlebotomy Services assess the position of the fetus size and placental position. Curvilinear hysterotomy was then executed with scalpel. Upon entry into the amniotic cavity clear fluid spilled forth. Wound was gently widened with finger traction. [facility] Phlebot[facility] Services reached into the uterine cavity and secured head. With fundal pressure from the election assistant the head was uneventfully delivered through the hysterotomy and laparotomy. There is no difficulty in delivery of the shoulders. Cord was doubly clamped and transected. Infant was handed to the waiting pediatric nursing team. Uterus was exteriorized and inspected. The hysterotomy is closed in 2 parts first with a interlock stitch of 0 Vicryl followed by an imbricating stitch of 0 5-0 Vicryl in a cardinal fashion. Pelvis was inspected for bleeding vessels. The abdominal cavity was doubly lavaged with warm normal saline. Yee clamps were used to tent the tube away from the mesosalpinx and mesosalpinx vessels. LigaSure device was used to doubly desiccate and transect each tube along the mesosalpinx uneventfully. During the salpingectomy the fi rst LigaSure device failed and was replaced by a properly functioning second. Approximately 1 cm of tubal stump was used to prevent fistulization. Both tubes were sent to pathology. Uterus was placed back into the abdominal cavity. All operative sites were inspected. The superior branch of the left uterine vein and vessels feeding the left tube were swollen and a small 5 mm area of venous weeping was visualized. A series of 2 interrupted sutures of 0 Vicryl were placed across the vein and one [id number] suture. The series of sutures ligated the uterine vein and bleeding stopped. We waited 5 minutes for continued observation to ensure that the area was hemostatically secure. Abdominal peritoneum was closed with running stitch of 2-0 Vicryl. Rectus muscles were tacked back together with interrupted stitches of 0 Vicryl. Fascial incision was closed with a running stitch of 0 Vicryl. Subcutaneous space was closed with interrupted sutures of 2-0 chromic. Skin was closed with 4-0 Vicryl in a subcuticular fashion. Wound VAC was placed. The final sponge needle and instrument counts were confirmed as correct. FINDINGS 1. The external exam genitalia were examined and no concerning lesions were discovered. The distribution of pubic hair was normal. The urethra was was had a appropriate angle and of normal caliber. 2. The abdomen was obese with truncal obesity. There was a 3 cm pannus.. 3. The uterus had a normal contour without evidence of fibroids. The internal cavity had no septum or myometrial defects. The uterus had evidence of pelvic congestion syndrome with increased vascularity.. 4. The placenta was removed intact with three-vessel cord. There was no cord entanglement. There is no evidence of infection or meconium. Cord blood sample was taken. 5. Ovaries were of normal size and mobile. 6. A living female was born at blank hours weighing blank 3330 grams. Apgars were 7/9. There was no obvious congenital anomalies or trauma. INTRAOP MEDS Ancef 2g IV piggyback. Pitocin IV Methergine 0.2mg IM
[2018-09-19] MEDS ORDERED: KETOROLAC 30 MG/ML VIAL IVP ONE (18:00)
[2018-09-19] MEDS ORDERED: ePHEDrine 50 MG/ML VIAL IVP ONE (18:00)
[2018-09-19] MEDS ORDERED: MORPHINE PF 5 MG/10 ML AMP EP ONE (18:00)
[2018-09-19] MEDS ORDERED: OXYTOCIN 10 UNIT/ML VIAL IV ONE (18:00)
[2018-09-19] MEDS ORDERED: ACETAMINOPHEN 1,000 MG/100 ML 100 ML IV ONE (19:50)
[2018-09-19] MEDS: LACTATED RINGERS 1,000 ML IV SCH (20:34)
[2018-09-19] MEDS ORDERED: DOCUSATE SODIUM 100 MG CAPSULE PO SCH (21:00)
[2018-09-19] MEDS: ACETAMINOPHEN 500 MG TABLET PO SCH (22:03)
[2018-09-19] MEDS: IBUPROFEN 600 MG TABLET PO SCH ×2 (22:04→23:43)
[2018-09-19] MEDS: SIMETHICONE CHEW 80 MG TABLET PO SCH (23:43)
[2018-09-20] MEDS: LACTATED RINGERS 1,000 ML IV SCH ×2 (00:44→02:47)
[2018-09-20] MEDS: ACETAMINOPHEN 500 MG TABLET PO SCH ×3 (04:39→20:56)
[2018-09-20] MEDS: IBUPROFEN 600 MG TABLET PO SCH ×3 (06:23→18:48)
--- NOTE | 2018-09-20 10:02 | PROVIDER PROGRESS NOTE ---
Subjective - General Admit Date: 09/19/18 Procedure Date: 09/19/18 Post Op Days: 1 Procedure Performed: C/S - Review of Systems Wound/Incisions: positive: Healing well, Other (Wound VAC functional) General: positive: No symptoms HEENT: positive: No symptoms Pulmonary: positive: No symptoms Cardiovascular: positive: No symptoms Gastrointestinal: positive: No symptoms, Abdominal pain (Appropriate soreness after section slightly more on left side than right) Genitourinary: positive: No symptoms, Other (Non-foul lochia) Musculoskeletal: positive: No symptoms Skin: positive: No symptoms Psychiatric: positive: No symptoms Objective - Patient Data Vital Signs: Vital Signs x48h Temp Pulse Resp BP Pulse Ox 09/20/18 08:00 99.0 F 79 16 118/54 L 98 09/20/18 05:57 16 09/20/18 05:55 106/52 L 09/20/18 05:44 96/41 L 09/20/18 05:00 16 09/20/18 04:00 16 09/20/18 03:09 89 12 112/55 L 97 09/20/18 02:51 108/44 L 09/20/18 02:47 98.6 F 84 18 103/43 L 98 09/20/18 02:03 16 Weight: Weight 09/18/18 09/19/18 09/20/18 23:59 23:59 23:59 Weight (kg) 101.605 kg Intake & Output: Intake and Output Totals x24h 09/18/18 09/19/18 09/20/18 23:59 23:59 23:59 Intake Total 2359.217 Output Total 125 265 Balance -125 2094.217 - Lab Results Other Lab Results: Lab Results x24hrs 09/19/18 Range/Units 10:30 Membranes Rupture NEGATIVE (NEGATIVE) - Current Medications Current Medications: Current Medications Generic Name Dose Route Start Last Admin Trade Name Freq PRN Reason Stop Dose Admin Acetaminophen 1,000 mg 09/19/18 17:00 09/20/18 04:39 Tylenol PO 1,000 mg Q8H JESSICA Administration Docusate Sodium 250 mg 09/19/18 21:00 09/19/18 22:11 Colace 100mg Capsule PO Not Given BID JESSICA Lactated Ringer's 1,000 mls @ 100 mls/hr 09/19/18 17:00 09/20/18 02:47 Lr IV 999 mls/hr .Q10H JESSICA Administration Ibuprofen 600 mg 09/19/18 17:00 09/20/18 06:23 Motrin PO 600 mg Q6H JESSICA Administration Ondansetron HCl 4 mg 09/19/18 12:56 09/19/18 21:16 Zofran Inj IVP 4 mg Q4H PRN Administration Nausea / Vomiting Simethicone 80 mg 09/19/18 22:00 09/19/18 23:43 Mylicon PO 80 mg TID JESSICA Administration Sodium Chloride 10 ml 09/19/18 17:00 09/19/18 22:11 Normal Saline Flush 0.9% IVP Not Given 0100,0900,1700 [facility] Physical Exam - Physical Exam General: positive: No acute distress HEENT: positive: Moist mucous membranes Neck: positive: Supple w/out meningeal sx Cardiac: positive: Regular Rate, Murmur Present Resipratory: positive: Clear to ausultation breezy Abdomen: positive: Normal Bowel sounds, Other (Appropriate tenderness) Female : positive: Enlarged uterus (17-week size tender) Extremities: positive: Normal ROM, No pedal edema Skin: positive: Warm and dry Neurologic: positive: Alert and Oriented X 3, Normal motor/no weakness, Normal Sensation, Normal Speech Assessment/Plan - Assessment/Plan Assessment: Patient recovering from well. Hemodynamically stable. Nursing going well. No evidence of mood disturbance. Plan: * Increase activity. * Discontinue Rosado. * Supportive care. * Breast-feeding coaching.
[2018-09-20 11:55] LABS: BASOPHILS % (AUTO) 0.2 %; EOSINOPHILS % (AUTO) 0.3 %; HGB - HEMOGLOBIN 9.5 g/dL (12.0-16.0); LYMPHOCYTES # (AUTO) 1.5 10^3/uL (1.5-3.5); LYMPHOCYTES % (AUTO) 13.1 %; MEAN CORPUSCULAR HEMOGLOBIN 28.6 pg (27.0-31.0); MEAN CORPUSCULAR HGB CONC 33.6 g/dL (32.0-36.0); MEAN PLATELET VOLUME 9.1 fL (7.9-10.8); MONOCYTES # (AUTO) 0.9 10^3/uL (0.0-1.0); MONOCYTES % (AUTO) 7.6 %; NEUTROPHILS # (AUTO) 9.3 10^3/uL (1.5-6.6); NEUTROPHILS % (AUTO) 78.8 %; PLT - PLATELET COUNT 213 10^3/uL (130-450); RED BLOOD COUNT 3.34 10^6/uL (4.20-5.40); RED CELL DISTRIBUTION WIDTH 14.9 % (12.0-15.0); WHITE BLOOD COUNT 11.9 x10^3/uL (4.8-10.8)
[2018-09-20] MEDS: SIMETHICONE CHEW 80 MG TABLET PO SCH ×2 (12:42→20:56)
[2018-09-20] MEDS: DOCUSATE SODIUM 250 MG CAPSULE PO SCH ×2 (12:53→20:56)
[2018-09-21] MEDS: IBUPROFEN 600 MG TABLET PO SCH ×4 (01:26→21:19)
[2018-09-21] MEDS: ACETAMINOPHEN 500 MG TABLET PO SCH ×4 (06:33→23:34)
[2018-09-21] MEDS ORDERED: MEASLES,MUMPS & RUBELLA VACC 0.5 ML VIAL SUBQ ONE (07:29)
[2018-09-21] MEDS: SIMETHICONE CHEW 80 MG TABLET PO SCH ×4 (08:49→21:19)
[2018-09-21] MEDS: DOCUSATE SODIUM 250 MG CAPSULE PO SCH ×2 (08:50→21:19)
[2018-09-22] MEDS: IBUPROFEN 600 MG TABLET PO SCH ×3 (03:27→14:10)
[2018-09-22] MEDS: ACETAMINOPHEN 500 MG TABLET PO SCH (08:21)
[2018-09-22] MEDS: SIMETHICONE CHEW 80 MG TABLET PO SCH ×2 (08:22→14:10)
--- NOTE | 2018-09-22 08:52 | Discharge Plan ---
Discharge Plan Disposition: 01 Home, Self Care Condition: Good Diet: Regular Activity Restrictions: Activity as Tolerated Shower Restrictions: No Driving Restrictions: No No Smoking: If you smoke, Please STOP! Call for help.
[2018-09-22] MEDS: DOCUSATE SODIUM 250 MG CAPSULE PO SCH (09:39)
--- NOTE | 2018-09-22 10:04 | DISCHARGE SUMMARY ---
Physician: Rakesh Parker MD DATE OF ADMISSION: 09/19/2018 DATE OF DISCHARGE: 09/22/2018 DIAGNOSES 1. Elective (maternal demand; sterilization via bilateral salpingectomy). 2. Obesity. PROCEDURE: Primary lower segment transverse section, bilateral salpingectomy. HISTORY OF PRESENT ILLNESS: The patient is a 28-year-old , 2 para 1, who has had re gular care at the [facility]. It is suspected that her fetus is possible LGA. The len ent strongly desires a section. She was counseled by Dr. Mckinney and myself. Reference original [facility] and [facility] note. HOSPITAL COURSE: The patient was evaluated earlier in the day for possible labor. There wer e very subtle cervical changes and contractions noted. Subsequently, the patient underwent primary l ower segment transverse section with bilateral salpingectomy under spinal anesthetic, uneven tfully. Total blood loss was 400-450. A living female was born weighing 3300 grams, and scoring Apg ars of 7/9. The patient went to the recovery room in good condition. Postoperatively, the patient did well recovering to normal activity and infant care activity. She re quired some supplementation with . On postoperative day #3, she strongly desired discha rge. She was prepped for her discharge including warning sign and callback instructions. Followup will be in seven days to remove wound VAC and wound check. DISCHARGE MEDICATIONS 1. Motrin 600 mg q 6 hours. 2. [place] 325/5 one tab every 4 hours breakthrough pain. 3. Colace 250 oral b.i.d. 4. vitamins with iron. TD: 09/22/2018 08:57
[2018-09-22 13:44] VITALS: BP 135/71
[2018-09-22] MEDS ORDERED: MEASLES,MUMPS & RUBELLA VACC 0.5 ML VIAL SUBQ ONE (14:45)
== END 2018-09-22 14:20 | disposition home or self-care (01) | DRG 785 ==
LOC: WFO 10:05 → FBP 10:05 → WFO 12:55 → FBP 12:56
PROVIDERS: ADMIT Obstetrics & Gynecology; ATTEND Obstetrics & Gynecology
PROC: 0UT70ZZ Resection of Bilateral Fallopian Tubes, Open Approach (ICD-10-PCS; principal; 2018-09-19)
PROC: 10D00Z1 Extraction of Products of Conception, Low, Open Approach (ICD-10-PCS; 2018-09-19)
DX: O36.63X0 Maternal care for excessive fetal growth, third trimester, not applicable or unspecified (principal); Z3A.38 38 weeks gestation of pregnancy; Z37.0 Single live birth; Z30.2 Encounter for sterilization; O99.214 Obesity complicating childbirth; E66.9 Obesity, unspecified
CPT/HCPCS: 36415; 84112; 85025; 99213

== ENCOUNTER 2018-09-23 10:44 | Emergency (ER) | payer OTHER ==
[2018-09-23 10:50] VITALS: BP 129/75
--- NOTE | 2018-09-23 11:47 | ED Physician Documentation ---
History of Present Illness - Stated complaint Stated Complaint: PUMP NOT WORKING POST SURGERY - Chief complaint Chief Complaint: Wound - History obtained from History obtained from: Patient, Family - History of Present Illness Timing: Last night - Additonal information Additional information: 28-year-old female has a wound VAC in place after a section on Tuesday and last night the device began to give a warning alarm and she called her RN FAMILY PRACTICE who told her to come to the emergency department this morning. Patient presents to the emergency department with a malfunctioning medical detailist and she is otherwise without symptoms. She does have symptoms of hemorrhoid which is not had previously and asked for advice about this. Review of Systems Constitutional: denies: Fever, Chills Respiratory: denies: Cough GI: reports: Abdominal Pain (over inscision improving). 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 Cardiovascular: Other - Present Medications Home Medications: Ambulatory Orders Medication Instructions Recorded Confirmed Cephalexin [Keflex] 500 mg PO QID #40 capsule 01/09/17 01/10/17 Hydrocodone/Acetaminophen [Vicodin 1 tab PO Q6HR 01/09/17 01/10/17 5-300 mg Tablet] Pnv95/Ferrous Fumarate/FA 1 tab PO DAILY 01/09/17 01/10/17 [ Tablet] Ondansetron HCl [Zofran] 4 mg PO Q6H PRN #10 tablet 01/10/17 Sulfamethoxazole/Trimethoprim 1 each PO BID 7 Days tablet 01/10/17 [Sulfamethoxazole-Tmp Ds Tablet] RX: Pyridoxine HCl [Vitamin B-6] 25 mg PO Q8H PRN #10 tablet 11/29/17 - Allergies Allergies/Adverse Reactions: Allergies Allergy/AdvReac Type Severity Reaction Status Date / Time No Known Drug Allergies Allergy Verified 09/23/18 10:49 - Social History Does the pt smoke?: No Smoking Status: Never smoker Does the pt drink ETOH?: No Does the pt have substance abuse?: No - Immunizations Immunizations are current?: Yes - POLST Patient has POLST: No PD ED PE NORMAL - Vitals Vital signs reviewed: Yes (normal ) - General General: Alert and oriented X 3, No acute distress, Well developed/nourished - HEENT HEENT: Atraumatic, PERRL, EOMI - Respiratory Respiratory: No respiratory distress - Abdomen Abdomen: Other (There is a wound vac over an inscision and no evidence of inflammation ) - Derm Derm: Normal color, Warm and dry, No rash - Extremities Extremities: No deformity, No edema - Neuro Neuro: Alert and oriented X 3, ship's master 2-12 intact, No motor deficit, No sensory deficit, Normal speech Eye Opening: Spontaneous Motor: Obeys Commands Verbal: Oriented GCS Score: 15 - Psych Psych: Normal mood, Normal affect Results - Vitals Vitals: Vital Signs - 24 hr 09/23/18 10:47 Temperature 36.0 C L Heart Rate 70 Respiratory 16 Rate Blood Pressure 129/75 O2 Saturation 100 Oxygen O2 Source Room air PD MEDICAL DECISION MAKING - ED course Complexity details: considered differential, d/w patient, d/w family ED course: Wound vacs batteries are replaced and the mechanism is reset and she continues to have some issue with this wound VAC. After repeated attempts the device is working. Departure - Departure Disposition: 01 Home, Self Care Clinical Impression: Encounter for management of wound VAC, Hemorrhoids Condition: Stable Instructions: Closure Wound Vacuum Assisted, ED Hemorrhoids Follow-Up: Rakesh Parker MD [Provider Admit Priv/Credential] - Discharge Date/Time: 09/23/18 12:39
== END 2018-09-23 12:39 | disposition home or self-care (01) ==
LOC: ED 10:44
DX: T85.618A Breakdown (mechanical) of other specified internal prosthetic devices, implants and grafts, initial encounter (principal); Y84.8 Other medical procedures as the cause of abnormal reaction of the patient, or of later complication, without mention of misadventure at the time of the procedure; O87.2 Hemorrhoids in the puerperium
CPT/HCPCS: 99282

== ENCOUNTER 2019-07-08 12:44 | Emergency (ER) | payer OTHER ==
[2019-07-08] MEDS ORDERED: SODIUM CHLORIDE 0.9% 1,000 ML IV STA (14:31)
--- NOTE | 2019-07-08 14:41 | ED Physician Documentation ---
History of Present Illness - Stated complaint Stated Complaint: DIZZY - Chief complaint Chief Complaint: General - History obtained from History obtained from: Patient - History of Present Illness Timing: How many days ago (2) Pain level max: 0 Pain level now: 0 - Additonal information Additional information: 28-year-old female states that she feels lightheaded whenever she stands up for the past 2 days. Seems to be better with lying down. Worse when she first stands up. Does not feel the room spinning. Does not feel vertiginous. No nausea or vomiting. No recent illnesses. No abdominal pain. No headaches. No changes in medications. No travel. Review of Systems Ten Systems: 10 systems reviewed and negative Constitutional: denies: Fever, Chills Cardiac: denies: Chest pain / pressure Respiratory: denies: Cough GI: denies: Nausea, Vomiting, Diarrhea : reports: Control (Tubal ligation). 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 Cardiovascular: Other - Present Medications Home Medications: Ambulatory Orders Medication Instructions Recorded Confirmed Cephalexin [Keflex] 500 mg PO QID #40 capsule 01/09/17 01/10/17 Hydrocodone/Acetaminophen [Vicodin 1 tab PO Q6HR 01/09/17 01/10/17 5-300 mg Tablet] Pnv No.95/Ferrous Fum/Folic AC 1 tab PO DAILY 01/09/17 01/10/17 [ Tablet] Ondansetron HCl [Zofran] 4 mg PO Q6H PRN #10 tablet 01/10/17 Sulfamethoxazole/Trimethoprim 1 each PO BID 7 Days tablet 01/10/17 [Sulfamethoxazole-Tmp Ds Tablet] Pyridoxine HCl (Vitamin B6) 25 mg PO Q8H PRN #10 tablet 11/29/17 [Vitamin B-6] - Allergies Allergies/Adverse Reactions: Allergies Allergy/AdvReac Type Severity Reaction Status Date / Time No Known Drug Allergies Allergy Verified 09/23/18 10:49 - Social History Does the pt smoke?: No Smoking Status: Never smoker Does the pt drink ETOH?: No Does the pt have substance abuse?: No - Immunizations Immunizations are current?: Yes - POLST Patient has POLST: No PD ED PE NORMAL - Vitals Vital signs reviewed: Yes - General General: Alert and oriented X 3, No acute distress, Well developed/nourished - HEENT HEENT: PERRL, Other (Dry lips) - Neck Neck: Supple, no meningeal sign - Cardiac Cardiac: RRR, Strong equal pulses - Respiratory Respiratory: No respiratory distress, Clear bilaterally - Abdomen Abdomen: Soft, Non tender, Non distended - Derm Derm: Warm and dry, No rash - Extremities Extremities: No edema - Neuro Neuro: Alert and oriented X 3 - Psych Psych: Normal mood, Normal affect Results - Vitals Vitals: Vital Signs - 24 hr 07/08/19 07/08/19 07/08/19 12:54 15:55 16:37 Temperature 37.0 C 37.1 C Heart Rate 73 73 87 Respiratory 16 18 16 Rate Blood Pressure 141/81 H 127/75 124/76 O2 Saturation 98 100 100 Oxygen O2 Source Room air - EKG (time done) 1446 Rate: Rate (enter#) (66) Rhythm: NSR North: Normal Intervals: Normal [place] QRS: Normal Ischemia: Normal ST segments - Labs Labs: Laboratory Tests 07/08/19 07/08/19 07/08/19 14:40 14:40 14:40 WBC 8.8 RBC 5.27 Hgb 14.2 Hct 46.0 MCV 87.3 MCH 26.9 L MCHC 30.9 L RDW 15.5 H Plt Count 325 MPV 11.3 H Neut # (Auto) 5.7 Lymph # (Auto) 2.3 [place] # (Auto) 0.6 Eos # (Auto) 0.2 Baso # (Auto) 0.0 Absolute Nucleated RBC 0.00 Nucleated RBC % 0.0 Sodium 139 Potassium 3.7 Chloride 104 Carbon Dioxide 26 Anion Gap 9.0 BUN 15 Creatinine 0.8 Estimated GFR (MDRD) 86 L Glucose 97 Calcium 9.6 Total Bilirubin 0.6 AST 22 ALT 24 Alkaline Phosphatase 57 Total Protein 8.6 H Albumin 4.5 Globulin 4.1 Albumin/Globulin Ratio 1.1 Lipase 35 Urine Color YELLOW Urine Clarity HAZY Urine pH 5.5 Ur Specific [place] 1.015 Urine Protein NEGATIVE Urine Glucose (UA) NEGATIVE Urine Ketones NEGATIVE Urine Occult Blood NEGATIVE Urine Nitrite NEGATIVE Urine Bilirubin NEGATIVE Urine Urobilinogen 0.2 (NORMAL) Ur Leukocyte Esterase TRACE H Urine RBC 0-5 Urine WBC 4-5 Ur Squamous Epith Cells MANY Squamous H Urine Bacteria Many H Ur Microscopic Review INDICATED Urine Culture Comments NOT INDICATED Urine HCG, Qual NEGATIVE PD MEDICAL DECISION MAKING - ED course Complexity details: reviewed results, re-evaluated patient, considered differential, d/w patient ED course: 28-year-old female presents with lightheadedness. Worse with standing. Her heart rate went from approximately 70 to over 100 when she stood up. She appeared near syncopal with this. She received 2 L of IV fluids and feels much better. Heart rate only went from 70 to mid 80s after this. Appears significantly dehydrated. Possible pots syndrome? We will have her follow-up with her doctor for further care. No significant lab abnormalities. Patient counseled regarding signs and symptoms for which I believe and urgent re- evaluation would be necessary. Patient with good understanding of and agreement to plan and is comfortable going home at this time This document was made in part using voice recognition software. While efforts are made to proofread this document, sound alike and grammatical errors may occur. Departure - Departure Disposition: 01 Home, Self Care Clinical Impression: Dehydration Condition: Good Instructions: ED Dehydration Follow-Up: Samir Mckay DO [Primary Care Provider] - Within 1 week Comments: Return if you worsen. Drink plenty of fluids at home. Follow-up with your doctor for further care. Forms: Activity restrictions Discharge Date/Time: 07/08/19 16:43
[2019-07-08 14:51] LABS: BASOPHILS % (AUTO) 0.5 %; EOSINOPHILS # (AUTO) 0.2 10^3/uL (0.0-0.7); EOSINOPHILS % (AUTO) 2.7 %; HGB - HEMOGLOBIN 14.2 g/dL (12.0-16.0); LYMPHOCYTES # (AUTO) 2.3 10^3/uL (1.5-3.5); LYMPHOCYTES % (AUTO) 25.7 %; MEAN CORPUSCULAR HEMOGLOBIN 26.9 pg (27.0-31.0); MEAN CORPUSCULAR HGB CONC 30.9 g/dL (32.0-36.0); MEAN CORPUSCULAR VOLUME 87.3 fL (81.0-99.0); MEAN PLATELET VOLUME 11.3 fL (7.9-10.8); MONOCYTES # (AUTO) 0.6 10^3/uL (0.0-1.0); MONOCYTES % (AUTO) 6.5 %; NEUTROPHILS # (AUTO) 5.7 10^3/uL (1.5-6.6); NEUTROPHILS % (AUTO) 64.3 %; PLT - PLATELET COUNT 325 10^3/uL (130-450); RED BLOOD COUNT 5.27 10^6/uL (4.20-5.40); RED CELL DISTRIBUTION WIDTH 15.5 % (12.0-15.0); WHITE BLOOD COUNT 8.8 x10^3/uL (4.8-10.8)
[2019-07-08 14:52] LABS: BILIRUBIN,URINE NEGATIVE (NEGATIVE); GLUCOSE, URINE (UA) NEGATIVE (NEGATIVE); KETONES,URINE (UA) NEGATIVE (NEGATIVE); LEUKOCYTE ESTERASE, URINE TRACE (NEGATIVE); NITRITE,URINE NEGATIVE (NEGATIVE); OCCULT BLOOD,URINE NEGATIVE (NEGATIVE); PH,URINE 5.5 PH (5.0-7.5); PROTEIN,URINE NEGATIVE (NEGATIVE); UROBILINOGEN,URINE 0.2 (NORMAL) E.U./dL (NORMAL)
[2019-07-08 14:53] LABS: CLARITY,URINE HAZY (CLEAR)
[2019-07-08 14:54] LABS: HCG UR QUAL NEGATIVE
[2019-07-08 14:58] LABS: ALBUMIN 4.5 g/dL (3.2-5.5); ALBUMIN/GLOBULIN RATIO 1.1 (1.0-2.2); BILIRUBIN,TOTAL 0.6 mg/dL (0.2-1.0); CALCIUM 9.6 mg/dL (8.5-10.3); CREATININE 0.8 mg/dL (0.4-1.0); TOTAL PROTEIN 8.6 g/dL (6.7-8.2)
[2019-07-08 15:06] LABS: BACTERIA,URINE Many /HPF (None Seen); RBC,URINE 0-5 /HPF (0-5); SQUAMOUS EPITHELIAL CELL,UR MANY Squamous (<= Few)
[2019-07-08] MEDS ORDERED: SODIUM CHLORIDE 0.9% 1,000 ML IV ONE (15:48)
[2019-07-08 16:39] VITALS: BP 124/76
== END 2019-07-08 16:43 | disposition home or self-care (01) ==
LOC: ED 12:44
DX: E86.0 Dehydration (principal)
CPT/HCPCS: 36415; 80053; 81001; 81003; 81025; 83690; 85025; 87086; 93005; 96360; 96361; 99284

== ENCOUNTER 2020-03-23 07:58 | Outpatient (CLI) | payer OTHER ==
--- NOTE | 2020-03-23 11:42 | Ultrasound Report ---
PROCEDURE: Pelvic w/Transvaginal INDICATIONS: HYDROSALPINX, VAGINAL DISCHARGE, IRREGULAR MENSES TECHNIQUE: Real-time scanning was performed of the pelvic organs, with image documentation. Additional endovagi nal scanning was necessary due to incomplete visualization of the adnexal and endometrial structures by transabdominal scanning. COMPARISON: None. FINDINGS: Transabdominal scanning: Limited scanning through the kidneys shows no hydronephrosis. No pathologi c free abdominal or pelvic fluid. Endovaginal scanning: Uterus: Uterus is normal in size at 10.5 x 4.4 x 7.9 cm. Uterine echotexture is heterogeneous. The endometrium measures 16 mm in combined thickness. Ovaries: Less than 12 follicular cysts are present within the bilateral ovaries, which are seen brown sabdominally. A cluster of cysts versus a hemorrhagic cyst measuring 27 mm within the left ovary is p resent. IMPRESSION: 1. Thickened endometrium. Endometrial sampling may be helpful to exclude neoplasm. 2. Heterogeneous uterine echotexture, of uncertain significance. This could be further assessed with pelvic MRI with and without intravenous contrast, if clinically indicated. Reviewed by: José Andres MD on 03/23/2020 11:41 AM PDT Approved by: José Andres MD on 03/23/2020 11:41 AM PDT Station ID: [id number]
== END 2020-03-23 07:59 | disposition home or self-care (01) ==
LOC: DI 07:58
PROVIDERS: ATTEND Obstetrics & Gynecology
DX: R93.89 Abnormal findings on diagnostic imaging of other specified body structures (principal)
CPT/HCPCS: 76830; 76856

== ENCOUNTER 2020-06-13 07:46 | Outpatient (CLI) | payer OTHER ==
[2020-06-13 08:23] LABS: BASOPHILS % (AUTO) 0.2 %; EOSINOPHILS # (AUTO) 0.2 10^3/uL (0.0-0.7); EOSINOPHILS % (AUTO) 2.2 %; HGB - HEMOGLOBIN 12.8 g/dL (12.0-16.0); LYMPHOCYTES # (AUTO) 2.3 10^3/uL (1.5-3.5); LYMPHOCYTES % (AUTO) 27.9 %; MEAN CORPUSCULAR HEMOGLOBIN 27.1 pg (27.0-31.0); MEAN CORPUSCULAR HGB CONC 31.4 g/dL (32.0-36.0); MEAN CORPUSCULAR VOLUME 86.3 fL (81.0-99.0); MEAN PLATELET VOLUME 10.4 fL (7.9-10.8); MONOCYTES # (AUTO) 0.7 10^3/uL (0.0-1.0); MONOCYTES % (AUTO) 8.3 %; NEUTROPHILS % (AUTO) 61.2 %; PLT - PLATELET COUNT 258 10^3/uL (130-450); RED BLOOD COUNT 4.73 10^6/uL (4.20-5.40); RED CELL DISTRIBUTION WIDTH 15.6 % (12.0-15.0); WHITE BLOOD COUNT 8.2 x10^3/uL (4.8-10.8)
== END 2020-06-13 07:47 | disposition home or self-care (01) ==
LOC: LAB 07:46
PROVIDERS: ATTEND Obstetrics & Gynecology
DX: Z01.812 Encounter for preprocedural laboratory examination (principal); Z20.828 Contact with and (suspected) exposure to other viral communicable diseases; N94.6 Dysmenorrhea, unspecified; Z30.2 Encounter for sterilization
CPT/HCPCS: 36415; 85025

== ENCOUNTER 2020-06-18 11:01 | Day surgery (SDC) | payer OTHER ==
[~2020-06-18 11:01] MED LIST changes: +ACETAMINOPHEN 1,000 MG/100 ML 100 ML IV ONE; +CEFAZOLIN SODIUM IN 0.9 % NACL 2 GM/100 ML BAG IV ONE; +CELECOXIB 100 MG CAPSULE PO ONE; -DINOPROSTONE 10 MG SUPP VG ONE; +GABAPENTIN 400 MG CAPSULE ONE; +PHENAZOPYRIDINE 100 MG TABLET PO ONE; -SODIUM CHLORIDE FLUSH 0.9% 10 ML SYRINGE IVP PRN; -SODIUM CHLORIDE FLUSH 0.9% 10 ML SYRINGE IVP SCH; -ZOLPIDEM 5 MG TABLET PO PRN
--- NOTE | 2020-06-18 11:08 | ANESTHESIA ---
Pre-Anesthesia VS, & Labs - Diagnosis dysfunctional uterine bleeding, desires permanent sterilization - Procedure [facility] Height: 5 ft 4 in Weight (kg): 98.3 kg Body Mass Index: 37.2 BMI Classification: Obese - NPO >8 hours - Is Patient ?: No - Lab Results Lab results reviewed: Yes Home Medications and Allergies Home Medications: Ambulatory Orders Acetaminophen [Tylenol] 650 mg PO Q6H PRN 06/11/20 Acetaminophen [Tylenol] 650 mg PO Q6H PRN 06/11/20 Allergies/Adverse Reactions: Allergies Allergy/AdvReac Type Severity Reaction Status Date / Time cephalexin [From Keflex] AdvReac Emesis Verified 06/11/20 10:13 Anes History & Medical History - Anesthetic History Anesthesia Complications: reports: Post-Operative Nausea/Vomiting Family history of Anesthesia Complications: Denies Family history of Malignant Hyperthermia: Denies - Medical History Cardiovascular: reports: None Pulmonary: reports: None Gastrointestinal: reports: None Urinary: reports: None Musculoskeletal: reports: None Endocrine/Autoimmune: reports: None Skin: reports: None Smoking Status: Never smoker - Surgical History Cardiothoracic:  Gynecologic: section, Other Exam General: Alert, Oriented x3, Cooperative, No acute distress Dental: WNL Mouth Openin Fingerbreadth Neck Mobility: Normal Mallampati classification: II Respiratory: Lungs clear, Normal breath sounds, No respiratory distress, No accessory muscle use Cardiovascular: Regular rate, Normal S1, Normal S2, No murmurs Plan Anesthesia Type: General Consent for Procedure(s) Verified and Reviewed: Yes Code Status: Attempt Resuscitation ASA classification: 2-Mild systemic disease Is this case an emergency?: No
[2020-06-18] MEDS ORDERED: LACTATED RINGERS 1,000 ML IV ONE ×2 (11:09→11:29)
[2020-06-18 11:29] LABS: HCG UR QUAL NEGATIVE
[2020-06-18] MEDS ORDERED: ePHEDrine 50 MG/ML VIAL IVP PRN (11:34)
[2020-06-18] MEDS ORDERED: ONDANSETRON 4 MG/2 ML VIAL IVP PRN ×2 (11:34→16:18)
[2020-06-18] MEDS ORDERED: NALOXONE 0.4 MG/ML VIAL IVP PRN (11:34)
[2020-06-18] MEDS ORDERED: HYDROmorphone 0.5 MG/0.5 ML SYRINGE IVP PRN ×2 (11:34→16:18)
[2020-06-18] MEDS ORDERED: MORPHINE 2 MG/ML CARPUJECT IVP PRN (11:34)
[2020-06-18] MEDS ORDERED: ATROPINE ABBOJECT 1 MG/10 ML SYRINGE IVP PRN (11:34)
[2020-06-18] MEDS ORDERED: METOCLOPRAMIDE 10 MG/2 ML VIAL IVP PRN (11:34)
[2020-06-18] MEDS ORDERED: fentaNYL 100 MCG/2 ML VIAL IVP PRN (11:34)
[2020-06-18] MEDS: SCOPOLAMINE PATCH TOP SCH ×2 (11:37→18:28)
[2020-06-18] MEDS ORDERED: BUPIVACAINE 0.25%-EPI 1:200000 PF 30 ML VIAL ONE ×2 (11:38→12:21)
[2020-06-18] MEDS ORDERED: METHYLENE BLUE 0.5% 50 MG/10 ML AMPULE ONE (11:38)
[2020-06-18] MEDS ORDERED: VASOPRESSIN 20 UNIT/ML VIAL ONE (11:38)
[2020-06-18] MEDS ORDERED: LACTATED RINGERS 1,000 ML IV SCH (12:00)
[2020-06-18] MEDS ORDERED: MIDAZOLAM 2 MG/2 ML VIAL IVP ONE (12:38)
[2020-06-18] MEDS ORDERED: ACETAMINOPHEN 1,000 MG/100 ML 100 ML IV ONE (12:38)
[2020-06-18] MEDS ORDERED: fentaNYL 100 MCG/2 ML VIAL IVP ONE (12:38)
[2020-06-18] MEDS ORDERED: ePHEDrine 50 MG/ML VIAL IVP ONE (12:38)
[2020-06-18] MEDS ORDERED: HYDROmorphone 1 MG/ML CARPUJECT IVP ONE (12:38)
[2020-06-18] MEDS ORDERED: GLYCOPYRROLATE 1 MG/5 ML VIAL IVP ONE (12:38)
[2020-06-18] MEDS ORDERED: ROCURONIUM 50 MG/5 ML VIAL IVP ONE (12:38)
[2020-06-18] MEDS ORDERED: DEXAMETHASONE 4 MG/ML VIAL IVP ONE (12:38)
[2020-06-18] MEDS ORDERED: PROPOFOL 200 MG/20 ML VIAL IVP ONE (12:38)
[2020-06-18] MEDS ORDERED: NEOSTIGMINE 1 MG/1 ML 10 ML MDV IVP ONE (12:38)
[2020-06-18] MEDS ORDERED: ONDANSETRON 4 MG/2 ML VIAL IVP ONE (12:38)
[2020-06-18] MEDS ORDERED: BUPIVACAINE 0.25%-EPI 1:200000 PF 30 ML VIAL SUBQ ONE ×2 (13:56)
[2020-06-18] MEDS ORDERED: METHYLENE BLUE 0.5% 50 MG/10 ML AMPULE IR ONE ×2 (13:56)
[2020-06-18] MEDS ORDERED: LACTATED RINGERS 500 ML IV ONE (16:07)
[2020-06-18] MEDS ORDERED: oxyCODONE 5 MG TABLET PO PRN (16:18)
[2020-06-18] MEDS ORDERED: PROMETHAZINE 25 MG TABLET PO PRN (16:21)
[2020-06-18] MEDS ORDERED: ONDANSETRON ODT 4 MG TABLET TL PRN (16:21)
--- NOTE | 2020-06-18 16:29 | OPERATIVE REPORT ---
Operative Report - General Planned Procedure: Laparoscopic hysterectomy with cystoscopy Pre-Op Diagnosis: Dysfunctional uterine bleeding and pelvic pain Procedure Performed: Total laparoscopic hysterectomy and cystoscopy Post Op Diagnosis: Same - Procedure Note Primary Surgeon: Codie Shaikh MD Secondary Surgeon: Celestina Doe MD Anesthesia Provider: Fabio Sahu CRNA Anesthesia Technique: General ET tube Pathology: Uterus with cervix IV Fluids (mL): 1,400 Estimated Blood Loss (mL): 200 Urine Output (mL): 150 (additional 200 cc preop) Indications: Patient is a 29 yo with long history of dysmenorrhea and dysfunctional uterine bleeding. She was first seen in clinic on and reports that she had a tubal sterilization at time of her past delivery, 17 months ago. Since that time, she has been having irregular menses and a fluid gush in mid-cycle. She generally spots for one day between menses at about mid-cycle. This followed by a gush of clear fluid. She wears a pad due to the fluid loss. Has been on-going for about a year. Not urine as it has a different texture to it. Has sensation similar to menstrual flow. Has history of PCOS and does ntowant to continue medical management for endometrial protection. Desires definitive management of dysfunctional uterine bleeding and pelvic pain. Findings: Slightly enlarged uterus with fallopian tubes surgically absent. Normal ovaries. Normal liver edge and gallbladder. Endometriosis implant in cul de sac. Small amount of serous fluid noted anterior to the bladder and in the cul de sac. Cystoscopy showed bilateral ureteral jets. Survey of bladder showed no injury of presence of suture. Complications: None - Other Other Information/Narrative: Risks benefits and alternatives of the procedure were reviewed. Consent was again confirmed. Patient was brought to the operating room and underwent general anesthesia. She was placed in dorsal lithotomy position with legs resting in yellowfin stirrups. SCDs were in place and activated. Cefazolin 2 g IV was administered prior to start of procedure. She was prepped and draped in the usual sterile fashion. Surgical timeout was performed. Bimanual exam was performed. Sterile speculum was placed. The cervix was visualized and a total of 20 cc of 0.25% bupivicaine with epinephrine was injected into the uterosacral ligaments. The [employer] uterine manipulator was placed, confirming that the cup was flush with the vaginal fornices. It was attached to the Ally uterine positioning system. Rosado catheter was placed, the bladder was drained, and the bladder was then back filled with 50 cc of dilute methylene blue. The catheter was then clamped. The base of the umbilicus was anesthetized with intradermal injection of 0.25% Marcaine. A 5 mm skin incision was made with a scalpel. A 5 mm blunt trocar was inserted under direct visualization using Visiport. Once the port was confirmed to be placed intraperitoneally, the abdomen was insufflated to 15 mmHg with CO2 gas Exploration of the abdomen and pelvis was confirmed that no injury was sustained with placement of the trocar. Two additional 5 mm ports were placed in the right and left lower quadrants, taking care to avoid the epigastric arteries, while under direct visualization via laparoscopic guidance. The abdomen was explored with the laparoscope, with findings as noted. The Fallopian tubes were noted to be surgically absent. The Round ligament on the left aspect of the uterus was sealed/transected/and divided. The uterine ovarian ligament was transected using the LigaSure bipolar device. A bladder flap was mobilized by dividing the round ligaments using the bipolar cutting forceps, and the peritoneum on the vesicouterine fold was incised to mobilize the bladder. Once the colpotomy ring was skeletonized and in position, the uterine arteries were sealed using the bipolar forceps at the level of the colpotomy ring. This was repeated on the right aspect of the uterus in the same manner. The bladder dissection was performed Over the colpotomy ring. Colpotomy was performed using monopolar hook, resulting in separation of the uterus. The uterus was then delivered through the vagina. Attention was then turned to the vaginal cuff closure. The right lower quadrant port was removed and the incision was extended to accommodate a 10 mm port. The 5 mm port was replaced with a 10 mm port. V-Loc suture was passed throught the port. The vaginal cuff was closed with a running suture using V-Loc suture. Closure of the cuff was airtight and abdominal insufflation was maintained post closure. Good hemostasis was noted. At no time was spillage of methylene blue noted in the surgical field. The vaginal cuff was visualized internally and noted to have good hemostasis. Devon-Damian device was placed in the 10 mm port site, which was then closed under direct visualization. The abdomen was partially desufflated. Pedicles were observed under decreased pressure and good hemostasis was again confirmed. Abdomen was then completely desufflated. All instruments were removed from the abdomen. Skin was closed with interrupted subcuticular stitches using 4-0 Monocryl. Dermabond was applied over the suture sites. We then turned our attention to the cystoscopic portion of the procedure. Rosado catheter was removed and the cystoscope was inserted. Bladder was instilled with NS. A survey of the bladder showed no trauma or presence of suture in the bladder topography. Patient had been pretreated with pyridium. Vigorous ureteral jets were observed bilaterally. Cystoscope was removed after bladder was drained. Rosado catheter was replaced. The final sponge needle and instrument counts were correct at completion of the procedure patient was awakened taken to the postanesthesia care unit in stable condition. Dr. Doe assisted with suturing, completion of his side of the hysterectomy, cystoscopy.
--- NOTE | 2020-06-18 16:31 | ANESTHESIA POST OP EVALUATION ---
Anesthesia Post Eval - Post Anesthesia Eval Vitals: Last Vital Signs Temp 36.4 C L 06/18/20 16:15 Pulse 96 06/18/20 16:15 Resp 14 06/18/20 16:15 BP 125/66 06/18/20 16:15 Pulse Ox 97 06/18/20 16:15 CV Function Including HR & BP: positive: Stable Pain Control: positive: Satisfactory Nausea & Vomiting: positive: Negative Mental Status: positive: Baseline Respiratory Status: Airway Patent Hydration Status: Satisfactory Anesthesia Complications: positive: None
[2020-06-18] MEDS ORDERED: HYDROmorphone 0.5 MG/0.5 ML SYRINGE ONE (16:35)
[2020-06-18] MEDS ORDERED: ACETAMINOPHEN 500 MG TABLET PO SCH (18:00)
[2020-06-18] MEDS: LACTATED RINGERS 1,000 ML IV SCH ×2 (18:29→18:50)
[2020-06-18] MEDS: KETOROLAC 30 MG/ML VIAL IVP SCH ×2 (18:47→23:48)
[2020-06-18] MEDS: DOCUSATE SODIUM 100 MG CAPSULE PO SCH (21:19)
[2020-06-18] MEDS: ACETAMINOPHEN 500 MG TABLET PO SCH (21:20)
[2020-06-18] MEDS: SIMETHICONE CHEW 80 MG TABLET PO SCH (21:20)
[2020-06-19] MEDS: LACTATED RINGERS 1,000 ML IV SCH ×2 (04:06→06:21)
[2020-06-19 05:22] LABS: BASOPHILS % (AUTO) 0.1 %; EOSINOPHILS % (AUTO) 0.1 %; LYMPHOCYTES # (AUTO) 2.1 10^3/uL (1.5-3.5); MEAN CORPUSCULAR HEMOGLOBIN 26.3 pg (27.0-31.0); MEAN CORPUSCULAR HGB CONC 30.1 g/dL (32.0-36.0); MEAN CORPUSCULAR VOLUME 87.4 fL (81.0-99.0); MEAN PLATELET VOLUME 10.8 fL (7.9-10.8); MONOCYTES # (AUTO) 0.6 10^3/uL (0.0-1.0); MONOCYTES % (AUTO) 5.7 %; NEUTROPHILS # (AUTO) 7.1 10^3/uL (1.5-6.6); NEUTROPHILS % (AUTO) 72.8 %; PLT - PLATELET COUNT 240 10^3/uL (130-450); RED BLOOD COUNT 4.19 10^6/uL (4.20-5.40); RED CELL DISTRIBUTION WIDTH 16.2 % (12.0-15.0); WHITE BLOOD COUNT 9.8 x10^3/uL (4.8-10.8)
[2020-06-19] MEDS: KETOROLAC 30 MG/ML VIAL IVP SCH ×2 (06:22→12:32)
[2020-06-19] MEDS: SIMETHICONE CHEW 80 MG TABLET PO SCH (06:22)
[2020-06-19] MEDS: ACETAMINOPHEN 500 MG TABLET PO SCH (06:22)
[2020-06-19] MEDS: ENOXAPARIN 40 MG/0.4 ML SYRINGE SUBQ SCH ×2 (07:53→13:09)
[2020-06-19] MEDS: DOCUSATE SODIUM 100 MG CAPSULE PO SCH (07:53)
[2020-06-19 11:21] VITALS: BP 103/49
--- NOTE | 2020-06-19 13:18 | PROVIDER PROGRESS NOTE ---
Subjective - Prog Note Date Prog Note Date: 06/19/20 Prog Note Time: 13:15 - Subjective Subjective: Doing well. + Flatus. Up and ambulating. Tolerating po. Pain well managed. Voiding with minimal PVR. Has not yet had lovenox. Objective - Vital Signs/Intake & Output Reviewed Vital Signs: Yes Vital Signs: Vital Signs x48h Temp Pulse Resp BP Pulse Ox 06/19/20 11:19 97.7 F 63 16 103/49 L 100 06/19/20 07:23 98.6 F 65 16 110/50 L 96 Intake & Output: Intake & Output 06/16/20 06/17/20 06/18/20 06/19/20 23:59 23:59 23:59 23:59 Intake Total 550 1461.667 Output Total 1400 2049 Balance -850 -588.333 - Objective General Appearance: positive: No acute distress Neck: positive: Nml inspection Respiratory: positive: No respiratory distress, Breath sounds nml Cardiovascular: positive: Regular rate & rhythm Abdomen: positive: Non-tender, Other (S&NT/ND. Incision sites healing well.) Skin: positive: Color nml Extremities: positive: Non-tender, No pedal edema Neurologic/Psychiatric: positive: Oriented x3 - Lab Results Fish Bones: 06/19/20 05:05 Other Labs: Lab Results x24hrs 06/19/20 Range/Units 05:05 WBC 9.8 (4.8-10.8) x10^3/uL RBC 4.19 L (4.20-5.40) 10^6/uL Hgb 11.0 L (12.0-16.0) g/dL Hct 36.6 L (37.0-47.0) % MCV 87.4 (81.0-99.0) fL MCH 26.3 L (27.0-31.0) pg MCHC 30.1 L (32.0-36.0) g/dL RDW 16.2 H (12.0-15.0) % Plt Count 240 (130-450) 10^3/uL MPV 10.8 (7.9-10.8) fL Neut # (Auto) 7.1 H (1.5-6.6) 10^3/uL Lymph # (Auto) 2.1 (1.5-3.5) 10^3/uL Marion # (Auto) 0.6 (0.0-1.0) 10^3/uL Eos # (Auto) 0.0 (0.0-0.7) 10^3/uL Baso # (Auto) 0.0 (0.0-0.1) 10^3/uL Absolute Nucleated RBC 0.00 x10^3/uL Nucleated RBC % 0.0 /100WBC Assessment/Plan - Problem List (1) S/P laparoscopic hysterectomy Impression: POD#1 s/p TLH/cystoscopy Doing well post op Meeting goals for discharge Routine instructions given DC to home
== END 2020-06-19 13:51 | disposition home or self-care (01) ==
LOC: SDS 11:01 → MS2 16:57 → SDS 06-19 13:51
PROVIDERS: ATTEND Obstetrics & Gynecology
PROC: 0UT94ZZ Resection of Uterus, Percutaneous Endoscopic Approach (ICD-10-PCS; principal; 2020-06-18 12:15)
DX: N94.6 Dysmenorrhea, unspecified (principal); N92.1 Excessive and frequent menstruation with irregular cycle; N84.0 Polyp of corpus uteri; N80.3 Endometriosis of pelvic peritoneum; R93.89 Abnormal findings on diagnostic imaging of other specified body structures; E28.2 Polycystic ovarian syndrome; Z98.51 Tubal ligation status
CPT/HCPCS: 36415; 58570; 81025; 85025; 86850; 86900; 86901; A9270; J0131; J0690; J1170; J1650; J3490; J7120

== ENCOUNTER 2021-03-09 13:06 | Outpatient (CLI) | payer OTHER ==
--- NOTE | 2021-03-09 13:58 | SLEEP CARE CONSULTATION ---
Information from patient questionnaire entered by Daja Artis. I have reviewed and concur with the information entered by Daja Artis. This document represents the service I personally performed and the decisions made by me, Nelli Bourne MD, [facility]. History of Present Illness Service Date and Time: 03/09/2021 1306 Reason for Visit: New patient Chief Complaint: reports: Insomnia, Unrefreshed sleep, Snoring, Excessive daytime sleepiness, Fatigue Date of Onset: 18 months Usual bedtime: 10:30 - 11:30 pm Time it takes to fall asleep: 10 minutes Snores at night: Yes Observed to quit breathing while asleep: No Sleeps alone due to snoring: Yes Number of times waking at night: 1-2 Reasons for waking at night: reports: Snoring, Bathroom, Other (noise) Toss, Turn, or Twitch while sleeping: Yes Recalls having dreams: Yes Usually gets out of bed at: 6-8 am Feels refreshed in the morning: No Morning headache: Yes (resolves after cup of coffee or Tylenol) Sleepy or fatigued during the day: Yes Ever fallen asleep while driving: No Takes day naps: Yes (when I can - 10 minutes) Dreams during day naps: No Prior sleep studies: No Additional HPI information: I have the pleasure of seeing Ms. Strickland today regarding the possibility of her having obstructive sleep apnea. As you know, she is a 30 year old lady who complains of loud snore, unrefreshed sleep, and fatigue. She was told by her dentist that she has enlarged tonsils and may need them removed. She then saw an ENT who would like her to first have a sleep study to see if she has obstructive sleep apnea-hypopnea. According to her , she snores loudly and have pauses in her breathing at night. 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 Patient is and lives in [place]. Have you smoked in the past 12 months: No Alcohol use: Yes Alcohol amount and frequency: 2-3 drinks weekly Caffeine use: Yes Caffeine amount and frequency: 1 cup of coffee daily Family History Family history of sleep disordered breathing: Yes Family Hx Sleep Apnea: Mother: Snoring, Father: Snoring Allergies and Home Medications Drug allergies reviewed: Yes Home medication list reviewed: Yes (none) Review of Systems Weight gain over past 5 years: 20 Weight loss over past 5 years: 20 Cardiovascular: denies: high blood pressure, palpitations, chest pain, irregular heart rate or pulse, leg or foot swelling, have to sleep sitting up, other Respiratory: reports: chronic cough Gastrointestinal: reports: heartburn (only when eating spicy foods) Urinary: denies: incontinence, frequency, urgency, impotence, other Neurological: reports: headaches Psychiatric: denies: Attention Deficit Hyperactivity, anxiety, depression, mood disorder, claustrophobia, other Ear/Nose/Throat: reports: nasal congestion, sinus problems Endocrine: denies: thyroid disease, history of goiter, sluggishness, too hot or cold, excessive thirst, increased appetite, increased urination, unexplained weakness, other Musculoskeletal: reports: back pain Immunologic: reports: sneezing Physical Exam Vital signs obtained and entered by: Dr. Bourne Blood Pressure: 110/70 Cuff size: regular Heart Rate: 68 O2 Saturation: 98 Height: 5 ft 4 in Weight: 213 lb Body Mass Index: 36.6 BMI Classification: Obese Neck circumference: 16 Mood/affect: normal Nostrils: partially obstructed Turbinates: swollen Septum: midline Mouth and throat: narrow oropharynx Soft palate: long Hard palate: normal Uvula: normal Uvula visualization: 25% Mallampati Class III Tongue: normal in size Tonsils: 1+ Chin and jaw: normal size and position Neck: normal w/o lymphadenopathy or thyromegaly Heart: regular rate and rhythm Lungs: clear bilaterally Extremities: no edema or clubbing Impression and Plan IMPRESSION: 1. Obstructive Sleep Apnea-Hypopnea Syndrome, as evident by history of loud and irregular snoring, observed cessation of breath while asleep, unrefreshed sleep, and persistent fatigue,. Narrow oropharynx and obesity are common predisposing factors for obstructive sleep apnea-hypopnea syndrome. I re commend proceeding to polysomnography to confirm the diagnosis and to assess severity. I informed the patient of what the sleep studies involve and after some discussion, she would like to first have a home sleep apnea test (HSAT). Plan: 1. Schedule a home sleep apnea test (HSAT). 2. Avoid long distance driving or when feeling sleepy. 3. Avoid alcohol, sedative and muscle relaxant around bedtime. 4. Attempt to lose weight. Counseling Topics: Weight control Visit Type: In Office Time Spent with Patient (minutes): 15 Provider Statement: I spent 100% of the Face to Face Visit with the patient with greater than 50% spent counseling the patient and coordination of care.
[2021-03-09 13:59] VITALS: BP 110/70
== END 2021-03-09 13:07 | disposition home or self-care (01) ==
LOC: SC 13:06
PROVIDERS: ATTEND Internal Medicine Pulmonary Disease
DX: R06.83 Snoring (principal); R06.81 Apnea, not elsewhere classified; G47.8 Other sleep disorders; R53.83 Other fatigue; E66.9 Obesity, unspecified; Z68.36 Body mass index [BMI] 36.0-36.9, adult
CPT/HCPCS: 99202; 99212

== ENCOUNTER 2021-03-17 13:48 | Outpatient (CLI) | payer OTHER | END 2021-03-17 13:49 | disposition home or self-care (01) | LOC: SC 13:48 | PROVIDERS: ATTEND Internal Medicine Pulmonary Disease | DX: G47.33 Obstructive sleep apnea (adult) (pediatric) (principal); R09.02 Hypoxemia; Z68.36 Body mass index [BMI] 36.0-36.9, adult | CPT/HCPCS: 95806 ==

== ENCOUNTER 2021-03-24 15:21 | Outpatient (CLI) | payer OTHER ==
--- NOTE | 2021-03-24 17:48 | XRAY Report ---
PROCEDURE: Chest 2 View X-Ray INDICATIONS: COUGH TECHNIQUE: 2 view(s) of the chest. COMPARISON: None. FINDINGS: Surgical changes and devices: None. Lungs and pleura: No pleural effusions or pneumothorax. Lungs are clear. Mediastinum: Mediastinal contours are normal. Heart size is normal. Bones and chest wall: No suspicious bony abnormalities. Soft tissues appear unremarkable. IMPRESSION: No acute cardiopulmonary abnormality. Reviewed by: Christiano Lees on 03/24/2021 5:47 PM PDT Approved by: Christiano Lees on 03/24/2021 5:47 PM PDT Station ID: [id number]
== END 2021-03-24 15:22 | disposition home or self-care (01) ==
LOC: DI 15:21
PROVIDERS: ATTEND Otolaryngology
DX: R05 Cough (principal)

== ENCOUNTER 2021-04-20 10:18 | Outpatient (CLI) | payer OTHER ==
--- NOTE | 2021-04-20 10:36 | SLEEP CARE CONSULTATION ---
Information from patient questionnaire entered by Daja Artis. I have reviewed and concur with the information entered by Daja Artis. This document represents the service I personally performed and the decisions made by me, Nelli Bourne MD, [facility]. History of Present Illness Service Date and Time: 04/20/2021 1018 Initial [place] Sleepiness Scale score: 9 (in 2020) Current [place] Sleepiness Scale score: 9 Additional HPI information: HPI: Ms. Strickland returned for follow up of the home sleep apnea test (HSAT) she had on 03/17/2021. The test showed that mild obstructive sleep apnea- hypopnea with an AHI of 8.5 and jignesh oxygen saturation of 84%. The respiratory events occurred more frequently during supine sleep. The patient was informed of these findings. I explained to her the pathophy siology behind obstructive sleep apnea. We then spent quite a bit of time discussing different treatment options. For mild obstructive sleep apnea, surgery and oral appliance are alternatives to nasal CPAP therapy but in moderate or severe cases, nasal CPAP is the most effective and reliable treatment. After some discussion, she opted to go with the nasal CPAP therapy. I explained to her how CPAP machine works and what to expect when using the machine. She is encouraged to use CPAP every night especially in the first 2 to 3 nights in order to get used to it. She should call me or her CPAP supplier to discuss any mechanical problem that may occur. If she snores while wearing the CPAP or feels like she needs more air from the machine, she should notify me and I will increase the pressure. Sleep Study - Results Type of Sleep Study: Home sleep study Prior sleep studies: No Allergies and Home Medications Drug allergies reviewed: Yes Home medication list reviewed: Yes Review of Systems Review of systems same as previous: Yes Physical Exam Height: 5 ft 4 in Weight: 213 lb Body Mass Index: 36.6 BMI Classification: Obese Impression and Plan IMPRESSION: 1. Obstructive Sleep Apnea-Hypopnea Syndrome, mild, associated with mild hypoxemia. Possibly, this is the cause of the patients symptoms of unrefreshed sleep, fatigue, and excessive daytime sleepiness. As mentioned above, the patient will be started on CPAP set at 4 - 12 cmH2O. Depending on her response and compliance she may be brought back for an overnight CPAP titration study. PLAN: 1. Prescription made for an autoCPAP, heated humidifier, and related supplies. 2. Attempt to lose weight. 3. Return for follow up after one month of using the CPAP. Counseling Topics: Weight control Follow up with Sleep Care in: 1-2 months Visit Type: In Office Provider Statement: I spent 100% of the Face to Face Visit with the patient with greater than 50% spent counseling the patient and coordination of care.
== END 2021-04-20 10:19 | disposition home or self-care (01) ==
LOC: SC 10:18
PROVIDERS: ATTEND Internal Medicine Pulmonary Disease
DX: G47.33 Obstructive sleep apnea (adult) (pediatric) (principal); E66.9 Obesity, unspecified; Z68.36 Body mass index [BMI] 36.0-36.9, adult
CPT/HCPCS: 99212

== ENCOUNTER 2021-04-27 09:33 | Outpatient (CLI) | payer OTHER | END 2021-04-27 09:34 | disposition home or self-care (01) | LOC: RT 09:33 | PROVIDERS: ATTEND Internal Medicine | DX: R05 Cough (principal) | CPT/HCPCS: 94010 ==

== ENCOUNTER 2021-06-29 12:32 | Outpatient (CLI) | payer OTHER ==
--- NOTE | 2021-06-29 19:55 | SLEEP CARE CONSULTATION ---
Information from patient questionnaire entered by Jaqueline Lopez. I have reviewed and concur with the information entered by Jaqueline Lopez. This document represents the service I personally performed and the decisions made by me, Nelli Bourne MD, [facility]. History of Present Illness Service Date and Time: 06/29/2021 1232 Previous diagnosis: Mild, Obstructive Sleep Apnea-Hypopnea Syndrome AHI: 8.5 Reason for follow up: first compliance Equipment obtained from: Other ([facility]) Mask style: Nasal pillows Prior sleep studies: Yes Year and Where: 02/2021 [facility] Type of Sleep Study: Home sleep study HPI additional information: Ms. Strickland returned today for follow up of nasal CPAP therapy. She was diagnosed to have mild obstructive sleep apnea-hypopnea syndrome. The patient went to [facility] for the equipment and was fitted with ResMed P30 nasal pillows.. She reports using the device nightly and all through the night. The compliance report shows usage in 30 nights out of the past 30 nights, averaging 7.1 hours a night. She complained of no particular problem with the device such as soreness on the face, dry nose, epistaxis, nasal congestion or headache. She thinks that the pressure of 4 - 12 cmH2O is comfortable. On the CPAP therapy she notices improvement in her sleep quality, and that she wakes up feeling fresher in the morning and more awake/alert during the day. The [place] Sleepiness Scale score 2. Her notices no snore at all. He uses a CPAP as well. The average residual AHI is 1.1; and air leak, 0 L/min. The 90th percentile pressure is 8.1 cmH2O. Sleep Study - Results Type of Sleep Study: Home sleep study Prior sleep studies: No CPAP Compliance Data - Data Reviewed with Patient Average duration of nightly device use: 7 hours 7 minutes Compliance rate %: 97 Current pressure setting (cmH2O): 4-12 Average residual AHI: 1.1 Central apnea: .2 Obstructive apnea: .6 Hypopnea: .2 Subjective Current pressure setting perceived as: comfortable Initial [place] Sleepiness Scale score: 9 (in 2020) Current [place] Sleepiness Scale score: 2 Allergies and Home Medications Drug allergies reviewed: Yes Home medication list reviewed: Yes Review of Systems Review of systems same as previous: Yes Physical Exam Height: 5 ft 4 in Weight: 220 lb Body Mass Index: 37.8 BMI Classification: Obese Impression and Plan IMPRESSION: 1. Obstructive Sleep Apnea-Hypopnea Syndrome, mild, with the patient doing well on nasal CPAP therapy. She has excellent compliance and significant clinical improvement. The current pressure appears effective and comfortable. Overall, she is very satisfied with treatment and plans to continue with it long-term. I will adjust her pressure setting a little. PLAN: 1. AutoCPAP set to 5 - 10 cmH2O. 2. Try to lose weight 3. Try ResMed N30i mask 4. Return in one year for follow up or earlier if there is any problem with the treatment. Counseling Topics: Weight control Visit Type: In Office Time Spent with Patient (minutes): 15 Provider Statement: I spent 100% of the Face to Face Visit with the patient with greater than 50% spent counseling the patient and coordination of care.
== END 2021-06-29 12:33 | disposition home or self-care (01) ==
LOC: SC 12:32
PROVIDERS: ATTEND Internal Medicine Pulmonary Disease
DX: G47.33 Obstructive sleep apnea (adult) (pediatric) (principal); E66.9 Obesity, unspecified; Z68.37 Body mass index [BMI] 37.0-37.9, adult
CPT/HCPCS: 99212

== ENCOUNTER 2021-09-11 08:00 | Outpatient (CLI) | payer OTHER ==
[2021-09-12] LABS: CHLAMYDIA TRACHOMATIS DNA NEGATIVE (NEGATIVE); NEISSERIA GONORRHOEAE DNA NEGATIVE (NEGATIVE); TRICHOMONAS VAGINALIS DNA NEGATIVE (NEGATIVE)
== END 2021-09-11 23:59 | disposition home or self-care (01) ==
LOC: LAB 08:00
PROVIDERS: ATTEND Obstetrics & Gynecology
DX: Z11.3 Encounter for screening for infections with a predominantly sexual mode of transmission (principal)
CPT/HCPCS: 87491; 87591; 87661